=== PATIENT | female | born 1995 | race Caucasian/White ===

== ENCOUNTER → 2019-07-06 12:09 | Outpatient (CLI) | payer OTHER, MEDICAID, SELFPAY ==
--- NOTE | 2019-07-06 12:11 | DI.US.S_ITS ---
PROCEDURE: US OB >= 14 WEEKS FETUS INDICATIONS: Anatomy Scan OUTSIDE/PRIOR DATING DATA: Last menstrual period (LMP): 01/24/19. LMP-based estimated date of delivery (FLORINDA): 10/31/19. First dating scan (date and location): 04/08/19. Estimated date of delivery (FLORINDA) from first dating scan: 11/26/19. TECHNIQUE: Real-time scanning was performed of the fetus, with image documentation and biometric measurements. Endovaginal scanning: Not needed for this study COMPARISON: None. FINDINGS: General: A single living intrauterine gestation is present. Presentation: Breech. Placenta: Placental position is posterior, without previa. Amniotic fluid index: 12.2 cm, normal range is 5-24 cm. heart rate: 132 beats per minute. Maternal cervical canal: 3.4 cm long. Normal lower limit is 2.5 cm. biometrics: Biparietal diameter: 4.4 cm, 19 weeks 2 days Head circumference: 16.7 cm, 19 weeks 2 days Abdominal circumference: 14.3 cm, 19 weeks 5 days Femur length: 3.1 cm, 19 weeks 5 days Estimated gestational age from initial scan: 19 weeks 4 days Composite gestational age from present scan: 19 weeks 4 days Estimated weight and percentile: 303 g, 48th percentile Measurement variability for biometric dating: +/- 7 days from 14 weeks to 15 weeks 6 days gestation, +/- 10 days from 16 weeks to 21 weeks 6 days gestation, +/- 2 weeks from 22 weeks to 27 weeks 6 days gestation, +/- 3 weeks for 28 weeks gestation or later. weight reference: 4500 g or EFW >90/95% is considered macrosomia or large for gestational age. EFW <10% is small for gestational age. EFW 5% or less is considered intra-uterine growth restriction. Anatomic survey: Neuro: Ventricles are non-dilated at less than 10 mm. Cisterna magna is normal at 3-11 mm. Cerebellum is normal in size and morphology. Nuchal skin fold: Normal at less than 6 mm between 14-21 weeks gestational age. Face: Nose and lips, facial profile are normal. Spine: No evidence for spina bifida. Heart: 4-chambered heart is present, with normal ventricular outflow tracts. Diaphragm: Diaphragm is intact. Stomach: Left-sided stomach is present. Kidneys: No hydronephrosis. Normal is less than 5 mm in 2nd trimester, less than 7 mm in 3rd trimester. Cord: 3-vessel cord has orthotopic insertion. Bladder: Normal in size. Extremities: All 4 extremities identified. IMPRESSION: Appropriate interval growth, no anomaly seen. Dictated by: Raulito Najera M.D. on 07/06/2019 at 16:11 Approved by: Raulito Najera M.D. on 07/06/2019 at 16:13
== END ==
PROVIDERS: PCP Obstetrics & Gynecology; Visit Provider Obstetrics & Gynecology
DX: Z34.92 Encounter for supervision of normal pregnancy, unspecified, second trimester (principal); Z3A.19 19 weeks gestation of pregnancy
CPT/HCPCS: 76811

== ENCOUNTER → 2019-08-23 10:14 | Outpatient (CLI) | payer OTHER, MEDICAID, SELFPAY ==
[2019-08-23 12:36] LABS: Hematocrit 38.8 % (36-46); Hemoglobin 13.1 g/dL (12.0-16.0)
[2019-08-23 13:13] LABS: GTT (PREG) 1 Hour PP 50gm Dose 101 mg/dL (76-139)
== END ==
PROVIDERS: PCP Obstetrics & Gynecology; Visit Provider Obstetrics & Gynecology
DX: Z34.02 Encounter for supervision of normal first pregnancy, second trimester (principal)
CPT/HCPCS: 36415; 82950; 85014; 85018; 86850

== ENCOUNTER → 2019-10-25 11:10 | Outpatient (CLI) | payer OTHER, MEDICAID, SELFPAY ==
[2019-10-26 08:23] LABS: Strep Grp B PCR NEG for Grp B Strep
== END ==
PROVIDERS: PCP Obstetrics & Gynecology; Visit Provider Obstetrics & Gynecology
DX: Z34.03 Encounter for supervision of normal first pregnancy, third trimester (principal); Z3A.35 35 weeks gestation of pregnancy
CPT/HCPCS: 87653

== ENCOUNTER 2019-10-28 13:02 | Outpatient (CLI) | payer OTHER, MEDICAID, SELFPAY ==
--- NOTE | 2019-10-28 14:02 | P.TNLD_ITS ---
Visit Information Visit Information Date of evaluation: 10/28/19 Primary OB Provider: Nilam Curry Reason for Evaluation: Yes non-stress test Comments/Additional reasons for admission: Patient presented from home reporting decreased movement, no other obstetrical complaints. [facility] Medical History Acne (Chronic) Chicken pox (Resolved ~1995) Chlamydia infection (Acute ~2018) Hormone disorder (Acute) Irregular menstrual cycle (Chronic) Ovarian cyst (Acute) Pyelonephritis (Acute) Surgical History Anesthesia (Resolved) History of facial surgery (Acute) Hx of tonsillectomy (Acute) [place] teeth extracted (Acute) Family History Grandmother Cancer Grandfather Heart disease Sister Hydrocephalus Father Hypertension Alcoholic Social History marital status: unmarried,living together number of children: 0 household members: significant other pets and animals: Yes (Dog) education level: college (1 year of College) occupational status: employed ([employer] ) current occupational exposures/hazards: No special killian needs: No leisure activities: exercise Smoking Status: Never smoker Smokeless tobacco user: other (H/O Vaping) second hand exposure: No alcohol intake: former substance use type: does not use Review of Systems Constitutional Constitutional: Reports system reviewed and no additional complaints, except as documented Gastrointestinal Gastrointestinal: Reports system reviewed and no additional complaints, except as documented Genitourinary Genitourinary: Reports system reviewed and no additional complaints, except as documented Evaluation Evaluation Baseline heart rate: 135 Variability: Moderate (11-25) monitor accelerations: Present monitor decelerations: Absent Category of Tracing: I Diagnosis, Plan/Disposition Plan/Disposition Plan: Home with routine follow up. OB Disposition: home
== END 2019-10-28 14:10 | disposition home or self-care (01) ==
LOC: LABOR 14:13 → OB 10-31 10:56
PROVIDERS: PCP Obstetrics & Gynecology; Referring Provider Obstetrics & Gynecology; Visit Provider Obstetrics & Gynecology
DX: O36.8130 Decreased fetal movements, third trimester, not applicable or unspecified (principal); Z3A.35 35 weeks gestation of pregnancy
CPT/HCPCS: 59025; G0378; G0379

== ENCOUNTER → 2019-11-23 08:40 | Outpatient (CLI) | payer OTHER, MEDICAID, SELFPAY ==
[2019-11-23 09:02] LABS: Add Manual Diff / Slide Review NO; Basophils Absolute Auto 100 /uL (0-100); Basophils Percent Auto 0.6 % (0-2); Eosinophils Absolute Auto 100 /uL (0-450); Eosinophils Percent Auto 1.1 % (2-4); Hematocrit 39.6 % (36-46); Hemoglobin 13.5 g/dL (12.0-16.0); Lymphocytes Absolute Auto 2100 /uL (1100-4500); Lymphocytes Percent Auto 18.6 % (25-40); Mean Corpuscular HGB Conc 34.1 % (30-36); Mean Corpuscular Hemoglobin 29.9 PG (26-34); Mean Corpuscular Volume 87.8 fL (80-100); Monocytes Absolute Auto 700 /uL (0-900); Monocytes Percent Auto 6.1 % (3-14); Neutrophils Absolute Auto 8400 /uL (1500-7000); Neutrophils Percent Auto 73.6 % (50-75); Platelet Count 254 X10^3/uL (150-400); Red Blood Cell Count 4.51 X10^6/uL (4.0-5.2); Red Cell Distribution Width 14.2 % (11.6-14.8); White Blood Cell Count 11.4 X10^3/uL (4.5-11.0)
[2019-11-23 09:05] LABS: Creatinine Urine Random 50.1 mg/dL; Protein (Total) Urine Random 15 mg/dL (0-12); Protein Creatinine Ratio Urine 0.29 GRAM/24H
[2019-11-23 09:13] LABS: Aspartate Aminotransferase 24 IU/L (14-36); BUN Creatinine Ratio 11.8 (6-22); Blood Urea Nitrogen 6 mg/dL (7-17); Estimated Glomerular Filt Rate > 60.0 mL/min (>60); Uric Acid 4.8 mg/dL (2.5-6.2)
== END ==
PROVIDERS: Referring Provider Obstetrics & Gynecology; Visit Provider Obstetrics & Gynecology
DX: Z34.90 Encounter for supervision of normal pregnancy, unspecified, unspecified trimester (principal)
CPT/HCPCS: 36415; 82570; 84156; 84450; 84550; 85025

== ENCOUNTER → 2019-11-27 08:52 | Outpatient (CLI) | payer OTHER, MEDICAID, SELFPAY ==
[2019-11-28 02:04] LABS: COVID19 Sendout Not Detected (Not Detect)
== END ==
PROVIDERS: Visit Provider Physician Assistant
DX: Z01.812 Encounter for preprocedural laboratory examination (principal)
CPT/HCPCS: 87635

== ENCOUNTER 2019-11-27 09:33 | Outpatient (CLI) | payer OTHER, MEDICAID, SELFPAY ==
--- NOTE | 2019-11-27 10:25 | P.TNLD_ITS ---
Visit Information Visit Information Date of evaluation: 11/27/19 Primary OB Provider: Nilam Curry Reason for Evaluation: Yes non-stress test Comments/Additional reasons for admission: This patient is a 24yo P0 @40+1, scheduled for induction of labor tomorrow for postdates in the setting of elective pre-induction covid testing. The patient reports feeling well with no complaints obstetrical or otherwise, and presents for planned NST/SHEREEN after being tested for covid this AM. Vital Signs Vital Signs: 125/86, HR 93, T 36.6C PFSH Medical History Acne (Chronic) Chicken pox (Resolved ~1995) Chlamydia infection (Acute ~2018) Hormone disorder (Acute) Irregular menstrual cycle (Chronic) Ovarian cyst (Acute) Pyelonephritis (Acute) Surgical History Anesthesia (Resolved) History of facial surgery (Acute) Hx of tonsillectomy (Acute) [place] teeth extracted (Acute) Family History Grandmother Cancer Grandfather Heart disease Sister Hydrocephalus Father Hypertension Alcoholic Social History marital status: unmarried,living together number of children: 0 household members: significant other pets and animals: Yes (Dog) education level: college occupational status: employed current occupational exposures/hazards: No special killian needs: No leisure activities: exercise Smoking Status: Never smoker Smokeless tobacco user: other second hand exposure: No alcohol intake: former substance use type: does not use Review of Systems Constitutional Constitutional: Reports system reviewed and no additional complaints, except as documented Cardiovascular Cardiovascular: Reports system reviewed; no additional complaints, except as documented Respiratory Respiratory: Reports system reviewed and no additional complaints, except as documented Gastrointestinal Gastrointestinal: Reports system reviewed and no additional complaints, except as documented Genitourinary Genitourinary: Reports system reviewed and no additional complaints, except as documented Exam Const General: cooperative, healthy appearing and comfortable GI Palpation: soft and No tender Evaluation Evaluation Baseline heart rate: 140 Variability: Average (6-10) monitor accelerations: Present monitor decelerations: Absent Category of Tracing: I Comments: irreg asymptomatic ctx. Modified BPP performed, SHEREEN 11.2 cm, cephalic presentation, right lateral placenta Diagnosis, Plan/Disposition Plan/Disposition Plan: Stable for discharge with routine precautions. Scheduled for admission to L&D tomorrow evening for cervical ripening. OB Disposition: home
== END 2019-11-27 10:30 | disposition home or self-care (01) ==
LOC: OB 11-28 14:23
PROVIDERS: Referring Provider Obstetrics & Gynecology; Visit Provider Obstetrics & Gynecology
DX: O48.0 Post-term pregnancy (principal); Z3A.40 40 weeks gestation of pregnancy; Z11.59 Encounter for screening for other viral diseases
CPT/HCPCS: 59025; 76815; 87635; G0378; G0379

== ENCOUNTER 2019-11-28 19:03 | Inpatient (IN) | payer OTHER, MEDICAID, SELFPAY ==
[2019-11-28 19:13] VITALS: BP 136/92
[2019-11-28] MEDS: DINOPROSTONE VAG (CERVIDIL) 10 MG VAG (20:05)
[2019-11-28 20:22] LABS: Add Manual Diff / Slide Review NO; Basophils Absolute Auto 0 /uL (0-100); Basophils Percent Auto 0.2 % (0-2); Eosinophils Absolute Auto 100 /uL (0-450); Eosinophils Percent Auto 0.8 % (2-4); Hematocrit 40.9 % (36-46); Hemoglobin 13.6 g/dL (12.0-16.0); Lymphocytes Absolute Auto 2700 /uL (1100-4500); Lymphocytes Percent Auto 20.3 % (25-40); Mean Corpuscular HGB Conc 33.4 % (30-36); Mean Corpuscular Hemoglobin 29.5 PG (26-34); Mean Corpuscular Volume 88.3 fL (80-100); Monocytes Absolute Auto 800 /uL (0-900); Monocytes Percent Auto 6.1 % (3-14); Neutrophils Absolute Auto 9500 /uL (1500-7000); Neutrophils Percent Auto 72.6 % (50-75); Platelet Count 279 X10^3/uL (150-400); Red Blood Cell Count 4.63 X10^6/uL (4.0-5.2); Red Cell Distribution Width 14.7 % (11.6-14.8); White Blood Cell Count 13.1 X10^3/uL (4.5-11.0)
[2019-11-28 20:23] LABS: COVID19 -Nasal RAPID Negative (Negative)
[2019-11-29] MEDS: CALCIUM CARBONATE 500 MG TAB PO ×2 (01:37→20:02)
[2019-11-29] MEDS: ZOLPIDEM 5 MG TABLET PO (01:37)
[2019-11-29] MEDS: OXYTOCIN PREMIX 30 UNIT/500 ML PLAST..BAG IV (08:44)
[2019-11-29] MEDS: LACTATED RINGERS 1,000 ML 100 ML IV ×2 (08:44→21:05)
--- NOTE | 2019-11-29 09:36 | PM.HP.1 ---
History of Present Illness History of Present Illness Chief complaint: Patient History Family & Social History Social History: household members significant other Tobacco & Substance use: Tobacco type smokeless tobacco Smoking Status Former smoker alcohol intake former Meds Home Medications and Allergies Home Medications Medication Instructions Recorded Confirmed Type nitrofurantoin 100 mg PO DAILY #180 cap 06/29/19 11/28/19 Rx monohydrate/macrocrystals 100 mg capsule multivit no.42-iron 38 1 cap PO DAILY #90 cap 07/26/19 11/28/19 Rx mg-methyltetrahydfolate 1 mg-dha 225 mg capsule Allergies Allergy/AdvReac Type Severity Reaction Status Date / Time adhesive tape Allergy Mild LOCAL Verified 11/29/19 08:38 RASH/HIVES Objective Labs Result Diagrams: 11/28/19 20:00 Labs: Laboratory Results - last 24 hr 11/28/19 11/28/19 11/28/19 19:20 20:00 20:00 WBC 13.1 H RBC 4.63 Hgb 13.6 Hct 40.9 MCV 88.3 MCH 29.5 MCHC 33.4 RDW 14.7 Plt Count 279 Neut % (Auto) 72.6 Lymph % (Auto) 20.3 L [place] % (Auto) 6.1 Eos % (Auto) 0.8 L Baso % (Auto) 0.2 Neut # (Auto) 9500 H Lymph # (Auto) 2700 [place] # (Auto) 800 Eos # (Auto) 100 Baso # (Auto) 0 COVID-19 PCR Negative Blood Type O Positive Antibody Screen Negative
--- NOTE | 2019-11-29 09:36 | PM.OBPNLAB ---
Date/Time Date Patient Seen: 11/29/19 Time Patient Seen: 09:36 Pain Control Pain control: tolerating well Pelvic Exam Dilation (cm): 3 Effacement (%): 80 station: -2 Amniotic membrane status: Intact Comments: 122/68, HR 89 Contractions Pitocin rate (mU/min): 4 Contraction frequency (min): 3 Status status: Category l Heart Rate Baseline: 135 Monitor Accelerations: Present Monitor Decelerations: Absent Monitor Variability: Moderate Assessment and Plan Assessment: active labor Plan: continuous present management
--- NOTE | 2019-11-29 10:48 | P.HPOB_ITS ---
OB HPI Date/Time Date of admission: 11/28/19 Date Patient Seen: 11/29/19 Time Patient Seen: 09:30 History of Present Condition Chief complaint: : 1 Para: 0 Estimated Date of Delivery: 11/26/19 Estimated Gestational Age (weeks): 40 Narrative: Maty Roa is a 24 year old @40+3 admitted overnight for cervical ripening for a postdates induction today. She reports feeling well with no decreased movement, LOF, or VB, though she has had irregular contractions. She denies any non-obstetric complaints. Her has been complicated by positive chlamydia test at her new OB visit with a negative test of cure. She has been on UTI prophylaxis due to a history of frequent UTIs and pyelonephritis, macrobid transitioning to keflex at 36 weeks. Her has otherwise been uncomplicated, and she presented for induction in order to facilitate covid testing. Of note, her partner tested positive for covid though he is asymptomatic, and she is asymptomatic and has tested negative twice, the second time on admission after being self isolated away from him. Indications Indication for induction OB: post dates and other (facilitating covid testing) History of Present care: good care, initiated at week # (10), number of visits (16) and pounds weight gain (50) Dating criteria: LMP confirmed by 1st trimester US Ultrasounds: normal 1st trimester US and normal mid trimester US Obstetrical complications: none Preadmission Labs Blood type: O (+) positive -: Antibody screen: negative, GBS status: negative, HBsAG: negative, HIV: negative and RPR/VDLR: negative -: Chlamydia screen: detected and Gonorrhea screen: not detected -: Rubella: immune and Varicella: immune PAP: Normal Integrated screen: complete and negative through [facility] 1 hr GTT: 101 Evaluation Evaluation Baseline heart rate: 135 Variability: Moderate (11-25) monitor accelerations: Present monitor decelerations: Absent Contraction Frequency (minutes): 3 Category of Tracing: I Cervical dilation (cm): 3 Cervical effacement (%): 80 station: -2 Laboratory results: Laboratory Tests 11/28/19 11/28/19 11/28/19 19:20 20:00 20:00 WBC 13.1 H RBC 4.63 Hgb 13.6 Hct 40.9 MCV 88.3 MCH 29.5 MCHC 33.4 RDW 14.7 Plt Count 279 Neut % (Auto) 72.6 Lymph % (Auto) 20.3 L [place] % (Auto) 6.1 Eos % (Auto) 0.8 L Baso % (Auto) 0.2 Neut # (Auto) 9500 H Lymph # (Auto) 2700 [place] # (Auto) 800 Eos # (Auto) 100 Baso # (Auto) 0 COVID-19 PCR Negative Blood Type O Positive Antibody Screen Negative PFSH Medical History Acne (Chronic) Chicken pox (Resolved ~1995) Chlamydia infection (Acute ~2018) Hormone disorder (Acute) Irregular menstrual cycle (Chronic) Ovarian cyst (Acute) Pyelonephritis (Acute) Surgical History Anesthesia (Resolved) History of facial surgery (Acute) Hx of tonsillectomy (Acute) [place] teeth extracted (Acute) Family History Grandmother Cancer Grandfather Heart disease Sister Hydrocephalus Father Hypertension Alcoholic Social History marital status: unmarried,living together number of children: 0 household members: significant other pets and animals: Yes (Dog) education level: college occupational status: employed current occupational exposures/hazards: No special killian needs: No leisure activities: exercise Smoking Status: Former smoker Smokeless tobacco user: other second hand exposure: No alcohol intake: former substance use type: does not use Meds Home Medications and Allergies Home Medications Medication Instructions Recorded Confirmed Type nitrofurantoin 100 mg PO DAILY #180 cap 06/29/19 11/28/19 Rx monohydrate/macrocrystals 100 mg capsule multivit no.42-iron 38 1 cap PO DAILY #90 cap 07/26/19 11/28/19 Rx mg-methyltetrahydfolate 1 mg-dha 225 mg capsule Allergies Allergy/AdvReac Type Severity Reaction Status Date / Time adhesive tape Allergy Mild LOCAL Verified 11/29/19 08:38 RASH/HIVES Review of Systems Constitutional Constitutional: Reports system reviewed and no additional complaints, except as documented Cardiovascular Cardiovascular: Reports system reviewed; no additional complaints, except as documented Respiratory Respiratory: Reports system reviewed and no additional complaints, except as documented Gastrointestinal Gastrointestinal: Reports system reviewed and no additional complaints, except as documented Genitourinary Genitourinary: Reports system reviewed and no additional complaints, except as documented Neurologic Neurologic: Reports system reviewed and no additional complaints, except as documented Exam Vital Signs (past 8 hours): 122/68, HR 69, T 36.6C Const General: cooperative, healthy appearing and comfortable GI Palpation: soft and No tender Speculum Exam - Vagina: normal appearance of the vagina Skin General: no rashes or lesions noted Objective Labs Result Diagrams: 11/28/19 20:00 Labs: Laboratory Results - last 24 hr 11/28/19 11/28/19 11/28/19 19:20 20:00 20:00 WBC 13.1 H RBC 4.63 Hgb 13.6 Hct 40.9 MCV 88.3 MCH 29.5 MCHC 33.4 RDW 14.7 Plt Count 279 Neut % (Auto) 72.6 Lymph % (Auto) 20.3 L [place] % (Auto) 6.1 Eos % (Auto) 0.8 L Baso % (Auto) 0.2 Neut # (Auto) 9500 H Lymph # (Auto) 2700 [place] # (Auto) 800 Eos # (Auto) 100 Baso # (Auto) 0 COVID-19 PCR Negative Blood Type O Positive Antibody Screen Negative Assessment and Plan Assessment and Plan Assessment and Plan narrative: This patient is admitted for elective induction of labor after 40 weeks, and has had a cervidil overnight transitioned to pitocin this AM. The patient is doing well, progressing to 3/80/-2, soft, and anterior after cervical ripening. - Continue pitocin per protocol - Anticipate AROM at 4-5cm dilated - Epidural at will - monitoring and toco per protocol.
--- NOTE | 2019-11-29 12:14 | PM.OBPNLAB ---
Date/Time Date Patient Seen: 11/29/19 Time Patient Seen: 12:14 Pain Control Pain control: tolerating well Pelvic Exam Dilation (cm): 4 Effacement (%): 80 station: -2 Amniotic membrane status: Ruptured (AROM, scant clear fluid) Contractions Contraction frequency (min): 3 Contraction pattern: Regular Contraction intensity: Moderate Status status: Category l Heart Rate Baseline: 125 Monitor Accelerations: Present Monitor Decelerations: Absent Monitor Variability: Moderate Assessment and Plan Assessment: induction ongoing Plan: continuous present management Comments: AROM for blood-tinged to clear fluid. Continue pitocin per protocol.
[2019-11-29] MEDS: ONDANSETRON 4 MG/2 ML INJ IV ×2 (15:50→19:58)
--- NOTE | 2019-11-29 17:11 | PM.OBPNLAB ---
Date/Time Date Patient Seen: 11/29/19 Time Patient Seen: 17:11 Pain Control Pain control: epidural Pelvic Exam Dilation (cm): 6 Effacement (%): 100 station: -3 Amniotic membrane status: Ruptured (AROM, scant clear fluid) Comments: ROT presentation Contractions Pitocin rate (mU/min): 9 Contraction frequency (min): 3 Contraction pattern: Regular Contraction intensity: Moderate Status status: Category ll Heart Rate Baseline: 120 Monitor Accelerations: Present Monitor Decelerations: Variable Monitor Variability: Moderate Assessment and Plan Assessment: induction ongoing Plan: continuous present management Comments: variable/late decelerations in the setting of patient repositioning and otherwise reassuring features. Mild to moderate bloody show.
[2019-11-29] MEDS: FENT 2MCG/ML BUPIV 0.125% EPI 200 MCG/100 ML PLAST..BAG 10 MCG EPIDURAL (19:42)
--- NOTE | 2019-11-29 20:18 | PM.OBPNLAB ---
Date/Time Date Patient Seen: 11/29/19 Time Patient Seen: 20:19 Pain Control Pain control: epidural (poor pain relief) Pelvic Exam Dilation (cm): 10 Effacement (%): 100 station: 0 Amniotic membrane status: Ruptured (AROM, scant clear fluid) Contractions Pitocin rate (mU/min): 7 Contraction frequency (min): 2 Contraction pattern: Regular Contraction intensity: Moderate Status status: Category ll Heart Rate Baseline: 135 Monitor Accelerations: Present Monitor Decelerations: Variable Assessment and Plan Assessment: induction ongoing Plan: continuous present management Comments: Patient fully dilated, OT presentation. Anesthesia en route to bolus epidural, then plan to start second stage with attempted manual rotation of vertex.
--- NOTE | 2019-11-29 21:19 | PM.PREOP ---
Pre-operative Note COVID-19 COVID-19 status: Negative Result date/Date tested (Pos, Neg/Pending): 11/28/19 Interval Note History & Physical reviewed/Exam performed by Physician: Yes Changes to H&P: No H&P completed within 30 days and has changed as indicated here:: Patient progressed to fully dilated, vertex alternating between ROT/ROP presentation and -1 to 0 station. Cat 2 EFM with late and prolonged decelerations, with 3 min prolonged to 90s with first few pushes. Pitocin turned off, bolus initiated, patient turned to right side, EFM improved. Patient consented for section for intolerance of labor in the second stage, remote from delivery. Discussed risks of continuing to push, primarily lack of oxygenation to fetus. Discussed risks of section including risk of infection, hemorrhage, and damage to bowel and bladder. Patient vocalized understanding and all questions answered.
[2019-11-29] MEDS: CEFAZOLIN 2 GM/100 ML FROZ.PIGGY IV (22:10)
[2019-11-29] MEDS: AZITHROMYCIN 500 MG in DEXTROSE 5% IN WATER 250 ML IV (22:20)
--- NOTE | 2019-11-29 22:30 | SUR.OPER ---
Supine on Padded OR bed, head on pillow, safety belt at thigh, arms secured on padded arm boards at <90 degrees abduction. Bump under right buttock. Legs uncrossed with pillow under knees, gel pad to heels, tape over blanket to lower legs.
--- NOTE | 2019-11-29 22:56 | SUR.OPER ---
viable baby girl born at 1031, placenta delivered at 1035, see OB rn charting for , placenta and cord blood sent with OB RN
[2019-11-29 23:38] VITALS: BP 133/78; PULSE 94; RESP 21; TEMP 36.7; O2SAT 99
[2019-11-29 23:43] VITALS: BP 127/74; PULSE 82; RESP 19; O2SAT 98
[2019-11-29 23:48] VITALS: BP 112/75; PULSE 91; RESP 22; O2SAT 98
--- NOTE | 2019-11-29 23:52 | P.OP_ITS ---
Operative Date/Time/Diagnoses Date of procedure: 11/29/19 Time of procedure: 23:52 Pre-op diagnosis: intolerance of 2nd stage of labor Post-op diagnosis: same Procedure & Clinicians Procedure: primary section Same procedure as scheduled: Yes Indications: intolerance of labor Surgeon: Nilam Curry Developer Designer: Renea Mercado Anesthesia Type: Epidural Operative Notes Findings: Normal uterus, tubes, and ovaries. 7#5oz female infant in cephalic, ROP presentation, nuchal cord x1. Closure Type: primary Specimen(s): other (cord gas) Estimated Blood Loss (mL): 750 Blood products transfused: none Procedure in detail: EBL: 750 Fluids:1900 UOP: approx 200ccs, red Findings:female in cephalic presentation, Apgars 4, 6, 9, weight 7#5, normal uterus, tubes, ovaries. Procedures: The patient was taken to the operating room where epidural anesthesia was bolused and found to be adequate. She was prepped and draped in the normal sterile fashion in the dorsal supine position with a leftward tilt. A Pfannenstiel skin incision was made with a scalpel and carried through to the underlying layer of fascia. The fascia was incised in the midline and the incision extended laterally with Hernandez scissors. The inferior aspect of this incision was grasped with Radha clamps, elevated. and the underlying rectus muscles dissected off bluntly. Attention was then turned to the superior aspect of this incision which, in a similar fashion, was grasped, tented up with the Radha clamps, and the rectus muscles dissected off bluntly. The rectus muscles were then in the midline, and the peritoneum identified, tented up, and entered sharply with Metzenbaum scissors. The peritoneal incision was extended superiorly and inferiorly with good visualization of the bladder. The bladder blade was inserted and the vesicouterine peritoneum identified, grasped with pickups, and entered sharply with the Metzenbaum scissors. This incision was extended laterally, and the bladder flap created digitally. The bladder blade was then reinserted and the lower uterine segment incised in transverse fashion with the scalpel. The uterine incision was bluntly extended laterally. The bladder blade was removed, and the 's head delivered atraumatically from the OP presentation, with some initial difficulty flexing the vertex. A loose nuchal cord was reduced, and the cord immediately clamped and cut. The infant was handed off to awaiting pediatricians. The placenta was then removed spontaneously, and the uterus was exteriorized and cleared of all clots and debris. The uterine incision was noted to have extend ed approx. 2cm inferiorly from the right apex, and approx. 3cm superiorly from the right apex. This was repaired with 1-0 chromic in a running, locked fashion, and a 2nd layer of the same suture was used to obtain excellent hemostasis. The uterus was returned to the abdomen, and the gutters were cleared of all clots and debris. The fascia was reapproximated with 0 Vicryl in a running fashion. The subcutaneous layer was placed with 3 0 Vicryl in a running fashion and the skin was closed with 4-0 biosyn in a running fashion. The patient tolerated the procedure well sponge lap and needle counts were correct x2. 2 g of Ancef and 500mg Azithromycin were given at commencement of the case, and a betadine vaginal prep was performed. The patient was taken to the recovery room in stable condition. Complications: none Post-operative Condition: stable Disposition: PACU Plan for aftercare: Routine care
[2019-11-29 23:53] VITALS: BP 108/77; PULSE 92; RESP 18; O2SAT 97
--- NOTE | 2019-11-30 00:22 | SUR.PHASEI ---
transferred to in stable condition. Scant Lochi noted with fundus noted 1 above umbilicus. Toradol adminsitered prior to transfer. Pt in stable condition. Report to OTILIA Rao
[2019-11-30] MEDS: LACTATED RINGERS 1,000 ML 100 ML IV (00:44)
[2019-11-30] MEDS: OXYCODONE IR 5 MG TABLET PO ×5 (01:41→20:18)
[2019-11-30] MEDS: KETOROLAC 30 MG/ML VIAL IV ×4 (06:09→18:30)
[2019-11-30 07:05] LABS: Add Manual Diff / Slide Review NO; Basophils Absolute Auto 0 /uL (0-100); Basophils Percent Auto 0.1 % (0-2); Eosinophils Absolute Auto 0 /uL (0-450); Eosinophils Percent Auto 0.2 % (2-4); Hematocrit 32.1 % (36-46); Hemoglobin 10.9 g/dL (12.0-16.0); Lymphocytes Absolute Auto 1800 /uL (1100-4500); Mean Corpuscular HGB Conc 33.9 % (30-36); Mean Corpuscular Volume 88.3 fL (80-100); Monocytes Absolute Auto 1500 /uL (0-900); Monocytes Percent Auto 8.7 % (3-14); Neutrophils Absolute Auto 13400 /uL (1500-7000); Platelet Count 219 X10^3/uL (150-400); Red Blood Cell Count 3.63 X10^6/uL (4.0-5.2); Red Cell Distribution Width 14.6 % (11.6-14.8); White Blood Cell Count 16.8 X10^3/uL (4.5-11.0)
[2019-11-30] MEDS: DOCUSATE 250 MG CAPSULE PO (09:50)
[2019-11-30] MEDS: ACETAMINOPHEN 325 MG TABLET 650 MG PO ×3 (09:50→23:09)
--- NOTE | 2019-11-30 12:29 | PM.OBPN.1 ---
Subjective - OB Subjective Patient comments: pain well controlled, incisional pain and tolerating diet baby status: doing well [place] feeding status: exclusively breast feeding Narrative: This patient is a 24yo P1 POD#1 s/p pCS for intolerance of labor. She had referred right shoulder pain this AM that is now resolved, and denies fevers, chills, nausea, vomiting, significant other abdominal pain, GABRIEL, or visual changes. She has not yet passed flatus, has not attempted ambulation, and is tolerating PO. Baby is doing well, attempting . Date Patient Seen: 11/30/19 Time Patient Seen: 08:00 Exam Vital Signs (past 8 hours): Oxygen Delivery Method Room Air Const General: cooperative, healthy appearing and comfortable Resp Effort & Inspection: normal respiratory effort Auscultation: clear to auscultation bilaterally Cardio Rate: regular rate Rhythm: regular rhythm GI Palpation: soft and No tender Other: incision c/d/i. Fundus firm, well below u. Mildly distended and tympanic, soft and non tender Skin General: no rashes or lesions noted Objective Labs Result Diagrams: 11/30/19 06:30 Labs: Laboratory Results - last 24 hr 11/30/19 06:30 WBC 16.8 H RBC 3.63 L Hgb 10.9 L Hct 32.1 L MCV 88.3 MCH 30.0 MCHC 33.9 RDW 14.6 Plt Count 219 Neut % (Auto) 80.0 H Lymph % (Auto) 11.0 L Gates % (Auto) 8.7 Eos % (Auto) 0.2 L Baso % (Auto) 0.1 Neut # (Auto) 20230 H Lymph # (Auto) 1800 Gates # (Auto) 1500 H Eos # (Auto) 0 Baso # (Auto) 0 Assessment & Plan Assessment and Plan (1) delivery delivered: Problem details: This patient is recovering appropriately from her section, meeting postoperative goals with stable vitals and a hemoglobin decrease c/w her blood loss. She will have her salmeron removed this AM, and was encouraged to ambulate and chew gum to facilitate passage of flatus. We also discussed that she should use tylenol and NSAIDs scheduled with breakthrough opioids for pain control. Status: Acute Current Visit: Yes Plan day: 1 plan OB: routine postop care Time Spent With Patient Time: Total time spent is greater than 50% in coordination of care (as documented) at patient's floor/unit and/or counseling patient: Time with patient: 15-24 minutes
[2019-11-30] MEDS: MAG HYDROX/ALUM/SIMETH 30 ML UDC PO (20:54)
[2019-11-30] MEDS: LANOLIN OINT 7 GM 1 APPLIC TOP (23:10)
[2019-12-01] MEDS: OXYCODONE IR 5 MG TABLET PO ×2 (00:36→05:16)
[2019-12-01] MEDS: IBUPROFEN 600 MG TABLET PO ×2 (01:08→08:21)
[2019-12-01] MEDS: ACETAMINOPHEN 325 MG TABLET 650 MG PO (05:16)
[2019-12-01] MEDS: DOCUSATE 250 MG CAPSULE PO (08:21)
--- NOTE | 2019-12-01 09:28 | P.PNOB_ITS ---
Subjective - OB Subjective Patient comments: no complaints, pain well controlled, incisional pain, tolerating diet and flatus present baby status: doing well [place] feeding status: exclusively breast feeding Narrative: This patient is POD#2 s/p pCS for intolerance of labor. She is passing flatus and reports improved abdominal pain, though she has burning incisional pain with large gaps between pain medication. She is voiding well, has mild to moderate lochia, denies fevers, chills, nausea, vomiting, GABRIEL, or visual changes. She is tolerating PO and ambulating without issue. Date Patient Seen: 12/01/19 Time Patient Seen: 09:28 Exam Vital Signs (past 8 hours): 119/69, HR 85, T 98.9F Oxygen Delivery Method Room Air Resp Effort & Inspection: normal respiratory effort Auscultation: clear to auscultation bilaterally Cardio Rate: regular rate Rhythm: regular rhythm GI Other: fundus firm, below u. Incision c/d/i. Skin General: no rashes or lesions noted Extrem General: normal to inspection Objective Labs Result Diagrams: 11/30/19 06:30 Assessment & Plan Assessment and Plan (1) delivery delivered: Problem details: This patient is recovering appropriately from her section, meeting postoperative goals and stable for discharge. Patient reported mild transient dizziness on first standing that has now resolved, but after discussion desires repeat H/H. Patient and baby are doing well. We discussed precautions for discharge including increasing pain, fevers, chills, nausea, vomiting, PIH symptoms, increasing bleeding, or any other concerning symptoms. All questions were answered and patient will return for incision check in 1 week. Status: Acute Current Visit: Yes Time Spent With Patient Time: Total time spent is greater than 50% in coordination of care (as documented) at patient's floor/unit and/or counseling patient: Time with patient: 15-24 minutes
--- NOTE | 2019-12-01 09:32 | P.DS_ITS ---
Discharge Providers Provider Date of admission: 11/28/19 19:03 Discharge Date: 12/01/19 Consults: 11/30/19 00:43 Consult to Class C Driver Routine Comment: Discharge provider: Nilam Curry MD Summary Hospital Course Date Patient Seen: 12/01/19 Time Patient Seen: 09:33 Procedures: primary section Hospital Course: This patient was admitted for induction of labor for postdates, and underwent induction with cervidil and pitocin. She progressed to fully dilated, but developed a cat 2 EFM and was remote from delivery, and was taken for primary section. Her section was complicated by hysterotomy extension, which was repaired without hemorrhage. Her recovery was uneventful, and she was discharged on POD#2 with routine precautions and follow up. Peripartum Data Delivery Method: Section complications: none [place] 1: Gender: Female Disposition of : home Discharge Diagnosis (1) delivery delivered: Status: Acute Problem Details: This patient is recovering appropriately from her section, meeting postoperative goals and stable for discharge. Patient reported mild transient dizziness on first standing that has now resolved, but after discussion desires repeat H/H. Patient and baby are doing well. We discussed precautions for discharge including increasing pain, fevers, chills, nausea, vomiting, PIH symptoms, increasing bleeding, or any other concerning symptoms. All questions were answered and patient will return for incision check in 1 week. Status at Discharge Cognitive/behavioral status at discharge: oriented Functional status at discharge: independent ambulation Overall status at discharge: patient is progressing back to baseline Time Spent with Patient Time attestation: Total time spent providing and/or coordinating discharge services: Time spent: Greater than 30 minutes Objective Labs Result Diagrams: 11/30/19 06:30 Exam Vital Signs (past 8 hours): Oxygen Delivery Method Room Air Discharge Plan Discharge Plan Patient Disposition: Home Discharge orders & Medications Prescriptions: New oxycodone 5 mg tablet 5 mg PO Q6H PRN (Reason: pain) Qty: 20 RF: 0 acetaminophen 325 mg tablet 650 mg PO Q6H PRN (Reason: section) Qty: 30 RF: 1 ibuprofen 600 mg tablet 600 mg PO Q6H PRN (Reason: section) Qty: 30 RF: 1 acetaminophen 325 mg tablet 325 mg PO Q4-6H PRN (Reason: section) Qty: 30 RF: 1 Continued multivit no.43-huvc-muyzfu-dha 38-1-225 mg capsule 1 cap PO DAILY Qty: 90 RF: 4 Discontinued nitrofurantoin monohyd/m-cryst [Macrobid] 100 mg capsule 100 mg PO DAILY Qty: 180 RF: 1 Follow up/Referrals: Nilam Curry MD [Physician] - 1 Week Diet/Activity/Treatments Diet: Regular Activity: Nothing in the vagina for 6 weeks. Avoid lifting more than 10 lbs for 6 weeks. If you have increasing bleeding, fevers, chills, nausea, vomiting, chest pain, palpitations, or any other symptoms or concerns, call the office or come to the emergency room. Skin/Wound/Dressing Care Report to your healthcare provider any signs of infection, such as:: chills, fe steven, night sweats, increased pain, unusual drainage and unusual redness Visit Report/Discharge Packet Instructions: DI for
[2019-12-01 09:44] VITALS: BP 119/69; PULSE 85; RESP 17; TEMP 37.2
[2019-12-01 09:49] LABS: Hemoglobin 10.4 g/dL (12.0-16.0)
== END 2019-12-01 11:30 | disposition home or self-care (01) | DRG 540 ==
PROVIDERS: Admitting Provider Obstetrics & Gynecology; Referring Provider Obstetrics & Gynecology; Visit Provider Obstetrics & Gynecology
PROC: 10D00Z1 Extraction of Products of Conception, Low, Open Approach (ICD-10-PCS; CPT 59514; principal; 2019-11-29 21:45)
DX: O48.0 Post-term pregnancy (principal); Z3A.40 40 weeks gestation of pregnancy; Z37.0 Single live birth; O98.82 Other maternal infectious and parasitic diseases complicating childbirth; O63.1 Prolonged second stage (of labor); O76 Abnormality in fetal heart rate and rhythm complicating labor and delivery
CPT/HCPCS: 01967; 01968; 36415; 59025; 59050; 59200; 59514; 76815; 85014; 85018; 85025; 86850; 86900; 86901; 87635; G0379; J0690; J1885; J2250; J2405; J2590; J2704

== ENCOUNTER → 2020-08-20 15:09 | Outpatient (CLI) | payer OTHER, MEDICAID, SELFPAY ==
[2020-08-20 16:34] LABS: Add Manual Diff / Slide Review NO; Basophils Absolute Auto 0 /uL (0-100); Basophils Percent Auto 0.5 % (0-2); Eosinophils Absolute Auto 100 /uL (0-450); Eosinophils Percent Auto 1.5 % (2-4); Hematocrit 43.5 % (36-46); Lymphocytes Absolute Auto 2200 /uL (1100-4500); Lymphocytes Percent Auto 36.2 % (25-40); Mean Corpuscular HGB Conc 32.2 % (30-36); Mean Corpuscular Hemoglobin 28.1 PG (26-34); Mean Corpuscular Volume 87.2 fL (80-100); Monocytes Absolute Auto 400 /uL (0-900); Monocytes Percent Auto 6.4 % (3-14); Neutrophils Absolute Auto 3300 /uL (1500-7000); Neutrophils Percent Auto 55.4 % (50-75); Platelet Count 273 X10^3/uL (150-400); Red Blood Cell Count 4.98 X10^6/uL (4.0-5.2); Red Cell Distribution Width 14.6 % (11.6-14.8)
[2020-08-20 18:00] LABS: Thyroid Stimulating Hormone 3.81 uIU/mL (0.47-4.68)
== END ==
PROVIDERS: Referring Provider Obstetrics & Gynecology; Visit Provider Obstetrics & Gynecology
DX: R00.2 Palpitations (principal)
CPT/HCPCS: 36415; 84439; 84443; 85025

== ENCOUNTER 2020-09-17 17:28 | Emergency (ER) | payer OTHER, MEDICAID, SELFPAY ==
[2020-09-17 17:34] VITALS: BP 129/78; PULSE 72; RESP 16; TEMP 36.6; O2SAT 99
--- NOTE | 2020-09-17 20:12 | ED.HA ---
HPI - Headache General Chief Complaint: Headache Stated Complaint: Migraine Time Seen by Provider: 09/17/20 18:04 Source: patient Mode of arrival: Ambulatory Limitations: no limitations History of Present Illness HPI Narrative: 25F former smoker with long history of headaches presents with the chief complaint of a typical headache for her. It has been gradual in onset and is generalized in its distribution. She states at its worst it's 8/10 and currently 6/10. She admits to worsening with bright lights and loud noises. She denies recent trauma or injury. She's had no fever, chills, or neck pain. She denies any focal neurologic symptoms such as numbness, tingling, or weakness. What is different, however, is that she has had some occasional flashers/floaters in either eye. She denies any visual field cut or decreased vision. SHe's had no eye pain, redness, or discharge. She does not currently have any visual problem. She denies chest pain or shortness of breath. MD Complaint: headache and migraine Onset (ago): week(s) Onset description: gradual Location: diffuse Severity: moderate Severity scale (1-10): 8 Quality: aching, throbbing and similar to previous headaches Relieving factors: dark room Exacerbating factors: light and noise Associated symptoms: photophobia and sensitivity to sound Treatments prior to arrival: none Related Data Home Medications Medication Instructions Recorded Confirmed paroxetine HCl 10 mg tablet 10 mg PO DAILY 09/13/20 09/13/20 Previous Rx's Medication Instructions Recorded multivit no.42-iron 38 1 cap PO DAILY #90 cap 07/26/19 mg-methyltetrahydfolate 1 mg-dha 225 mg capsule acetaminophen 325 mg PO Q4-6H PRN #30 tab 12/01/19 acetaminophen 650 mg PO Q6H PRN #30 tab 12/01/19 ibuprofen 600 mg PO Q6H PRN #30 tab 12/01/19 desogestrel-e.estradiol 0.15 1 tab PO DAILY #84 tab 01/09/20 mg-0.02 mg(21)/e.estrad 0.01 mg(5) tablet hydroxyzine HCl 25 mg tablet 25 mg PO TID PRN #30 tab 09/13/20 Allergies Allergy/AdvReac Type Severity Reaction Status Date / Time adhesive tape Allergy Mild LOCAL Verified 09/13/20 16:03 RASH/HIVES sertraline [From Zoloft] AdvReac Mild [place] more Verified 09/13/20 16:05 anxious Review of Systems Constitutional Constitutional: Denies chills, Denies fatigue, Denies fever(s), Denies frequent falls, Reports headache(s), Denies lethargy and Denies weakness Eyes Eyes: Denies change in vision, Denies eye discharge, Reports floaters, Denies irritation and Denies loss of vision ENT Ears, Nose, Mouth, and Throat: Denies change in voice, Denies dizziness, Reports headache(s), Denies neck pain, Denies sore throat and Denies throat swelling Cardiovascular Cardiovascular: Denies chest pain, Denies irregular heart rhythm, Denies lightheadedness, Denies palpitations, Denies dyspnea, Denies dyspnea on exertion and Denies orthopnea Respiratory Respiratory: Denies cough, Denies dyspnea, Denies dyspnea on exertion and Denies wheezing Gastrointestinal Gastrointestinal: Denies abdominal pain, Denies change in bowel habits, Denies diarrhea, Denies nausea and Denies vomiting Musculoskeletal Musculoskeletal: Denies neck pain and Denies numbness Integumentary/Breasts Skin/Breast: Denies pruritus, Denies erythema, Denies rash and Denies wounds Neurologic Neurologic: Denies behavioral changes, Denies confusion, Denies dizziness, Denies frequent falls, Reports headache(s), Denies loss of vision, Denies numbness and Denies weakness Psychiatric Psychiatric: Denies anxiety, Denies behavioral changes, Denies confusion, Denies depression, Denies homicidal ideation and Denies suicidal ideation Endocrine Endocrine: Denies fatigue, Denies flushing and Denies palpitations Hematologic/Lymphatic Hematologic/Lymphatic: Denies easy bruising Allergic/Immunologic Allergic/Immunologic: Denies urticaria, Denies throat swelling and Denies wheezing Patient History Medical History (Updated 09/17/20 @ 21:02 by Mustapha Shea DO) Acne Chicken pox (~1995) Chlamydia infection (~2018) Generalized anxiety disorder with panic attacks Hormone disorder Irregular menstrual cycle Ovarian cyst Pyelonephritis Surgical History Anesthesia History of facial surgery Hx of tonsillectomy [place] teeth extracted Family History Grandmother Cancer Grandfather Heart disease Sister Hydrocephalus Father Hypertension Alcoholic Social History marital status: unmarried,living together number of children: 0 household members: significant other pets and animals: Yes (Dog) education level: college occupational status: employed current occupational exposures/hazards: No special killian needs: No leisure activities: exercise Smoking Status: Former smoker Smokeless tobacco user: other second hand exposure: No alcohol intake: former substance use type: does not use Smoking Status: Former smoker Exam Narrative Exam Narrative: GENERAL: [25] year old patient appears stated age. Well-nourished, well-developed patient, in mild distress. GCS 15 HEAD: Atraumatic. Normocephalic. EYES: Pupils equal round and reactive. Extraocular motions intact. No scleral icterus. No injection or drainage. Normal funduscopic exam ENT: Nose without bleeding, purulent drainage. Throat without erythema, tonsillar hypertrophy or exudate. Airway patent. Negative Brudzinski's, negative Kernig's NECK: Trachea midline. Non tender CARDIOVASCULAR: Regular rate and rhythm without murmurs, gallops, or rubs. RESPIRATORY: Clear to auscultation. Breath sounds equal bilaterally. No wheezes, rales, or rhonchi. GASTROINTESTINAL: Abdomen soft, non-tender, nondistended. EXTREMITIES: No edema or joint tenderness. BACK: Nontender without deformity or crepitance. No flank tenderness. NEURO: AOx3. SKIN: No rash or erythema of visible areas NIH Stroke Scale 1a. LOC: Patient is alert and keenly responsive (0) 1b. LOC Questions: Patient answers both LOC questions accurately (0) 1c. LOC Commands: Patient performs both tasks correctly (0) 2. Best Gaze: Normal (0) 3. Visual: No visual loss (0) 4. Facial palsy: Normal symmetrical movements (0) 5. Motor arm: No drift (0) 6. Motor leg: No drift (0) 7. Limb ataxia: Absent (0) 8. Sensory: Normal (0) 9. Best language: No aphasia; normal (0) 10. Dysarthria: Normal (0) 11. Extinction and inattention: No abnormality (0) NIHSS: 0 Initial Vital Signs Initial Vital Signs: Vital Signs Temperature 97.9 F 09/17/20 17:34 Pulse Rate 72 02/22/21 17:34 Respiratory Rate 16 09/17/20 17:34 Blood Pressure 129/78 09/17/20 17:34 Pulse Oximetry 99 09/17/20 17:34 Course Orders Ordered: ED Orders 09/17/20 20:16 CT head/brain wo con Stat Discontinued Medications Ketorolac Tromethamine (Ketorolac 60 Mg/2 Ml Vial) 15 mg IV NOW ONE Stop: 09/17/20 20:17 Last Admin: 09/17/20 20:27 Dose: 15 mg Documented by: MIRANDA Metoclopramide HCl (Metoclopramide 10 Mg/2 Ml Inj) 10 mg IV NOW ONE Stop: 09/17/20 20:17 Last Admin: 09/17/20 20:27 Dose: 10 mg Documented by: MIRANDA Reevaluation(s) Reevaluation #1: Patient feeling significant improvement in symptoms with the above-stated therapies Vital Signs Vital signs: Vital Signs - 8 hr 09/17/20 17:34 09/17/20 21:10 Temperature 97.9 F Pulse Rate 72 67 Respiratory Rate 16 14 Blood Pressure 129/78 116/84 Pulse Oximetry 99 99 MDM - Headache Imaging Data CT scan - head: Radiologist's Impression: Maty Roa N 25 F [address] Scan ReportSigned Patient: Maty Roa [facility]#: [id number]: 1995Acct:[id number]/Sex: 25 / FDate of Service: 09/17/20Loc: EDAccession Number: [id number] Procedure: CT head/brain wo con Ordering Provider: Mustapha Shea D.O. PROCEDURE: CT HEAD/BRAIN WO CON INDICATIONS: severe headaches with vision changes TECHNIQUE: Noncontrast 4.5 mm thick angled axial sections acquired from the foramen magnum to the vertex, with coronal and sagittal reformats. For radiation dose reduction, the following was used: automated exposure control, adjustment of mA and/or kV according to patient size. COMPARISON: None. FINDINGS: Image quality: Excellent. CSF spaces: Basal cisterns are patent. No extra-axial fluid collections. Ventricles are normal in size and shape. Brain: No midline shift. No intracranial masses or hemorrhage. Villaseñor-white matter interface is normal. Skull and face: Calvarium and visualized facial bones are intact, without suspicious lesions. Sinuses: Visualized sinuses and mastoids are clear. IMPRESSION: No hemorrhage found, no mass effect is identified. Source of pain is not seen. Dictated by: Raulito Najera M.D. on 09/17/2020 at 20:42 Approved by: Raulito Najera M.D. on 09/17/2020 at 20:43 [facility] Narrative Medical decision making narrative: Headache considerations include, but not limited to: Subarachnoid hemorrhage, but unlikely as patient denies sudden onset of pain, not worst of life, or neck pain Meningitis considered, but thought unlikely given lack of Brudzinski's, Kernig's sign, altered mental status or fever Giant cell arteritis considered, but thought unlikely given lack of unilateral findings, pain in worship, vision change HTN Emergency considered, but thought unlikely given normal vitals Other serious diagnoses considered unlikely given lack of red flag findings such as sudden onset, increasing frequency, immunocompromise, systemic signs (fever, chills, stiff neck, or rash), focal neurologic findings, trauma, blood thinners, etc. Discharge Plan Departure Patient Disposition: Home Clinical Impression: Atypical migraine Instructions: DI for Headache Activity Restrictions/Additional Instructions: *You have been diagnosed with [atypical migraine type headache. Exam and CT scan are very reassuring. There may be an element of medication changes which are playing a role but it is hard to tell.] *What to do: *Take medications as directed *Follow up with your primary care provider in 2-3 days, call for an appointment. Let them know you were seen in the Emergency Department and that we ask that you be seen in follow up *Return to ER if you should have any new, worsening or concerning symptoms, such as [confusion, fever greater than 101 F, focal neurologic findings such as numbness, weakness, tingling, worsening vision change or other bothersome symptoms] Prescriptions: No Action multivit no.82-fjoq-qnoaik-dha 38-1-225 mg capsule 1 cap PO DAILY Qty: 90 RF: 4 desog-e.estradiol/e.estradiol [Kariva (28)] 0.15-0.02 mgx21 /0.01 mg x 5 tablet 1 tab PO DAILY Qty: 84 RF: 5 paroxetine HCl [Paxil] 10 mg tablet 10 mg PO DAILY RF: 0 hydroxyzine HCl 25 mg tablet 25 mg PO TID PRN (Reason: anxiety) Qty: 30 RF: 1 acetaminophen 325 mg tablet 650 mg PO Q6H PRN (Reason: section) Qty: 30 RF: 1 ibuprofen 600 mg tablet 600 mg PO Q6H PRN (Reason: section) Qty: 30 RF: 1 acetaminophen 325 mg tablet 325 mg PO Q4-6H PRN (Reason: section) Qty: 30 RF: 1 Referrals: Burke Bautista DO [Primary Care Provider] -
--- NOTE | 2020-09-17 20:16 | DI.CT.S_ITS ---
PROCEDURE: CT HEAD/BRAIN WO CON INDICATIONS: severe headaches with vision changes TECHNIQUE: Noncontrast 4.5 mm thick angled axial sections acquired from the foramen magnum to the vertex, with coronal and sagittal reformats. For radiation dose reduction, the following was used: automated exposure control, adjustment of mA and/or kV according to patient size. COMPARISON: None. FINDINGS: Image quality: Excellent. CSF spaces: Basal cisterns are patent. No extra-axial fluid collections. Ventricles are normal in size and shape. Brain: No midline shift. No intracranial masses or hemorrhage. Villaseñor-white matter interface is normal. Skull and face: Calvarium and visualized facial bones are intact, without suspicious lesions. Sinuses: Visualized sinuses and mastoids are clear. IMPRESSION: No hemorrhage found, no mass effect is identified. Source of pain is not seen. Dictated by: Raulito Najera M.D. on 09/17/2020 at 20:42 Approved by: Raulito Najera M.D. on 09/17/2020 at 20:43
[2020-09-17] MEDS: KETOROLAC 60 MG/2 ML VIAL 15 MG IV (20:27)
[2020-09-17] MEDS: METOCLOPRAMIDE 10 MG/2 ML INJ IV (20:27)
[2020-09-17 21:10] VITALS: BP 116/84; PULSE 67; RESP 14; O2SAT 99
== END 2020-09-17 21:10 | disposition home or self-care (01) ==
PROVIDERS: Emergency Provider Emergency Medicine; PCP Family Medicine
DX: G43.009 Migraine without aura, not intractable, without status migrainosus (principal); H53.9 Unspecified visual disturbance
CPT/HCPCS: 36415; 70450; 96374; 96375; 99284; J1885; J2765

== ENCOUNTER → 2020-10-15 14:45 | Outpatient (CLI) | payer OTHER, MEDICAID, SELFPAY ==
[2020-10-15 15:33] LABS: Add Manual Diff / Slide Review NO; Basophils Absolute Auto 0 /uL (0-100); Basophils Percent Auto 0.6 % (0-2); Eosinophils Absolute Auto 100 /uL (0-450); Eosinophils Percent Auto 1.3 % (2-4); Hematocrit 39.2 % (36-46); Hemoglobin 13.1 g/dL (12.0-16.0); Lymphocytes Absolute Auto 2100 /uL (1100-4500); Lymphocytes Percent Auto 37.1 % (25-40); Mean Corpuscular HGB Conc 33.3 % (30-36); Mean Corpuscular Hemoglobin 29.3 PG (26-34); Monocytes Absolute Auto 400 /uL (0-900); Monocytes Percent Auto 7.1 % (3-14); Neutrophils Absolute Auto 3100 /uL (1500-7000); Neutrophils Percent Auto 53.9 % (50-75); Platelet Count 229 X10^3/uL (150-400); Red Blood Cell Count 4.46 X10^6/uL (4.0-5.2); Red Cell Distribution Width 13.6 % (11.6-14.8); White Blood Cell Count 5.8 X10^3/uL (4.5-11.0)
[2020-10-15 15:50] LABS: Alanine Aminotransferase 12 IU/L (<35); Albumin 4.5 g/dL (3.5-5.0); Albumin Globulin Ratio 1.7 (1.0-2.8); Alkaline Phosphatase 88 U/L (38-126); Aspartate Aminotransferase 21 IU/L (14-36); Bilirubin Total 0.3 mg/dL (0.2-1.3); Blood Urea Nitrogen 14 mg/dL (7-17); Calcium 9.1 mg/dL (8.4-10.2); Carbon Dioxide 25 mmol/L (22-32); Chloride 104 mmol/L (98-107); Estimated Glomerular Filt Rate > 60.0 mL/min (>60); Globulin 2.6 g/dL (1.7-4.1); Glucose 83 mg/dL (70-100); HEMOLYSIS < 15 (0-50); Potassium 4.1 mmol/L (3.4-5.1); Sodium 138 mmol/L (137-145); Total Protein 7.1 g/dL (6.3-8.2)
--- OUTSIDE RECORDS SUMMARY | 2020-12-26 08:41 | XMS_ITS | Referral Summary ---
:1995 Author Organization [facility] Address [address] [place] [address] Care Team Providers Name Role Phone DO Michele Primary Care Provider Reason for Referral Surgical (Routine) Status Reason Specialty Diagnoses / Referred By Referred To Procedures Contact Contact Closed Specialty General Surgery Diagnoses Calculus of gallbladder and bile duct without cholecystitis or obstruction Rajan Melendez MD HOSPITAL Required [address] [place] [id number] [place] [address] Phone: Electronically signed by Rajan Melendez MD atDiagnostic Imaging (Emergency) Status Reason Specialty Diagnoses / Referred By Referred To Procedures Contact Contact Closed Specialty Radiology Diagnoses Abdominal pain, unspecified abdominal location Rajan Melendez, [facility] Us Services Required Procedures US ABDOMEN COMPLETE MD [address] [place] [address] Phone: Electronically signed by Rajan Melendez MD at Reason for Visit Reason Comments Abdominal Pain Encounter Details Date Type Department Care Team Description 12/21/2020 Office Visit [facility] Rajan Melendez, Calculus of gallbladder and bile duct without cholecystitis or obstruction (Primary Dx); Clinics Urgent Care Abdominal pain, unspecified abdominal lo cation [facility] [address] [place] [address] [phone] Allergies Active Allergy Reactions Severity Noted Date Comments Adhesive Tape-Silicones Rash Low 02/14/2017 Hydroxyzine 12/21/2020 High blood pres sure documented as of this encounter (statuses as of 12/21/2020) Medications Medication Sig Dispensed Refills Start Date End Date Status 25/iron Take by mouth 0 Active fum/folic/dha (-1 ORAL) ondansetron ODT Take 4 mg by 0 A ctive (ZOFRAN-ODT) 4 mg mouth every 8 disintegrating tablet (eight) hours as needed for nausea or vomiting hydrOXYzine (ATARAX) 25 take 1 tablet by 0 1 Active mg tablet mouth three times a day if needed for anxiety ibuprofen Take 600 mg by 0 Activ e (ADVIL,MOTRIN) 600 mg mouth every tablet morning acetaminophen (TYLENOL) Take 500 mg by 0 Active 500 mg tablet mouth every morning documented as of this encounter (statuses as of 12/21/2020) Active Problems Problem Noted Date Panic attack 09/11/2020 Last Assessment & Plan: Newly identified Most likely vasovagal syncope due to pre sence of symptoms, previous vasovagal syncopal episode EKG normal in office, all screening labs were normal Patient has been experiencing very high anxiety, and also side effects of her medication Discussed hydroxyzine for as needed anxi ety symptoms? but is unable to use this due to breast-feeding status Discussed progressive relaxation techniq ues, breathing retraining and discontinuing sertraline Advised patient to stop monitoring his b lood pressure, as it is normal today in office at 128/86 Cardiac and neurological exam completely normal, patient's labs were unremarkable and she has had her thyroid checked in the past 2 months. Current moderate episode of major depressive disorder 09/04/2020 Last Assessment & Plan: Psychological condition is newly identified. Medication changes per orders. PHQ-9 sc ore is 18. No SI/HI Psychological condition will be reasses sed in 2 weeks. Migraine with aura and without status migrainosus, not intractable 09/04/2020 Last Assessment & Plan: Headaches are unchanged. Advised to keep a headache diary. Continue ibuprofen and Tylenol as needed , will consider adding on an as needed abortive medication for migraines in the future if they persist anxiety 07/30/2020 Last Assessment & Plan: Worsening Discontinue sertraline, start Paxil 10 m g nightly Cannot use hydroxyzine due to breast-fee ding status, discussed adjunctive treatments for episodes of high anxiety including progressive muscle relaxation techniques, breathing retraining and meditation Patient was significantly less anxious a t the end of the visit, and reassured that the work-up was benign and there are no identifiable alternative causes of her symptoms , first, first trimester 05/04/2019 documented as of this encounter (statuses as of 12/21/2020) Immunizations Name Administration Dates Next Due FLU PF 6+Mos Quad (Fluzone, 05/04/2019 FluLaval, Fluarix) HPV 4-valent (Gardasil) 05/27/2010, 08/27/2009, 05/31/2009, 05/12/2008 MMR (M-M-R II) 12/06/1997 OPV 12/05/1998 documented as of this encounter Social History Tobacco Use Types Packs/Day Years Used Date Never Smoker Smokeless Tobacco: Current User Comments: vaping Alcohol Use Drinks/Week oz/Week Comments Not Currently Sex Assigned at Date Recorded Not on file Job Start Date Occupation Industry Not on file Not on file Not on file documented as of this encounter Last Filed Vital Signs Vital Sign Reading Time Taken Comments Blood Pressure 120/74 12/21/2020 9:13 AM PDT Pulse 88 12/21/2020 9:13 AM PDT Temperature 36.6 ??C (97.9 ??F) 12/21/2020 9:13 AM PDT Respiratory Rate 18 12/21/2020 9:13 AM PDT Oxygen Saturation 98% 12/21/2020 9:13 AM PDT Inhaled Oxygen Concentration - - Weight 87.3 kg (192 lb 6.4 oz) 12/21/2020 9:13 AM PDT Height 174 cm (5' 8.5) 12/21/2020 9:13 AM PDT Body Mass Index 28.83 12/21/2020 9:13 AM PDT documented in this encounter Patient Instructions Patient InstructionsRajan Melendez MD - 12/21/2020 8:40 AM PDTWe are ordering some blood work and an ultrasound. I will call you with the results. documented in this encounter Progress Notes Rajan Melendez MD - 12/21/2020 8:40 AM PDT [facility] Urgent Care Clinic Note Patient Name: Maty Bee Date of : 1995 Reason for visit: had concerns including Abdominal Pain. Subjective History of Present Illness Maty Bee is a 25 y.o. female with a past medical history of anxiety who presents today with right upper quadrant and epigastric pain. No change in bowel habits. No fever. No nausea or vomiting. Patient reports she is had right upper quadrant pain off and on for the last coupleof years starting during her . Patient reports her mother just had a cholecystectomy last month. Patient presents with upper abdominal pain x 1 week. Patient states that she is a year and has had this problem on and off. She has a family hx of stomach ulcers. Abdominal Pain This is a new problem. The current episode started in the past 7 days. The onset quality is gradual.The problem occurs constantly. The most recent episode lasted 7 days. The problem has been graduallyworsening. The pain is located in the RUQ and epigastric region. The pain is at a severity of 3/10. The pain is mild. The quality of the pain is sharp and aching. The abdominal pain does not radiate. Th e pain is aggravated by eating (drinking alcohol). The pain is relieved by palpation. She has tried antacids (colace) for the symptoms. The treatment provided moderate relief. Past Medical History: Diagnosis Date ??? Anxiety ??? Hormone disorder Higher testerone levels ??? Ovarian cyst 05/05/2010 Ovarian cyst ruptured ??? Pyelonephritis 2-3 years ago and was hospitalized for this Past Surgical History: Procedure Laterality Date ??? SECTION 11/2019 ??? FACIAL LACERATIONS REPAIR 02/06/2014 ??? TONSILLECTOMY 2010 Allergies Allergen Reactions ??? Hydroxyzine High blood pressure ??? Adhesive Tape-Silicones Rash Family History Problem Relation Age of Onset ??? Hydrocephalus Sister shunt ??? Asthma Mother's Brother ??? Lung cancer Maternal Grandmother ??? Heart disease Maternal Grandfather ??? Hypertension Mother ??? Hypertension Father Social History Patient reports that she has never smoked. She uses smokeless tobacco. She reports previous alcohol use. She reports previous drug use. Frequency: 3.00 times per week. Drug: Marijuana. Current Medication List Sig acetaminophen (TYLENOL) 500 mg tablet Take 500 mg by mouth every morning ibuprofen (ADVIL,MOTRIN) 600 mg tablet Take 600 mg by mouth every morning hydrOXYzine (ATARAX) 25 mg tablet take 1 tablet by mouth three times a day if needed for anxiety ondansetron ODT (ZOFRAN-ODT) 4 mg disintegrating tablet Take 4 mg by mouth every 8 (eight) hours asneeded for nausea or vomiting 25/iron fum/folic/dha (-1 ORAL) Take by mouth Immunization History Administered Date(s) Administered ??? FLU PF 6+Mos Quad (Fluzone, FluLaval, Fluarix) 05/04/2019 ??? HPV 4-valent (Gardasil) 05/12/2008, 05/31/2009, 08/27/2009, 05/27/2010 ??? MMR (M-M-R II) 12/06/1997 ??? OPV 12/05/1998 Review of Systems Gastrointestinal: Positive for abdominal pain. Objective Vital Signs BP 120/74 Pulse 88 Temp 36.6 ??C (97.9 ??F) Resp 18 Ht 1.74 m Wt 87.3 kg SpO2 98% BMI 28.83 kg/m?? Physical Exam Vitals and nursing note reviewed. Constitutional: Appearance: Normal appearance. Cardiovascular: Rate and Rhythm: Normal rate and regular rhythm. Pulmonary: Effort: Pulmonary effort is normal. Breath sounds: Normal breath sounds. Abdominal: General: Abdomen is flat. Bowel sounds are normal. Palpations: Abdomen is soft. Tenderness: There is abdominal tenderness in the right upper quadrant and epigastric area. There is no guarding or rebound. Negative signs include Boo's sign. Comments: Minimally tender to palpation Neurological: Mental Status: She is alert. Psychiatric: Mood and Affect: Mood normal. Behavior: Behavior normal. Thought Content: Thought content normal. Judgment: Judgment normal. Orders Placed This Encounter Procedures ??? US ABDOMEN COMPLETE Standing Status: Future Number of Occurrences: 1 Standing Expiration Date: 03/23/2022 Order Specific Question: Is this exam for pre-biopsy evaluation? Answer: No Order Specific Question: Release to patient Answer: Immediate ??? Complete blood count with diff Standing Status: Future Number of Occurrences: 1 Standing Expiration Date: 12/21/2021 Order Specific Question: Release to patient Answer: Immediate ??? Comprehensive Metabolic Panel Scheduling Instructions: STAT ??? Lipase Scheduling Instructions: STAT Order Specific Question: Release to patient Answer: Immediate US ABDOMEN COMPLETE Result Date: 12/21/2020 [facility] [place]. [address] PATIENT NAME: MATY BEE : 1995 GENDER: F ACCOUNT #: EXAM DATE: 12/21/2020 11:11 ORDERED FROM: [facility] ORDERING PHYSICIAN: RAJAN MELENDEZ CC: -- - - - CONTRAST: READING STATION ID: [id number] mGy: PROCEDURE: US ABDOMEN COMPLETE INDICATIONS: right upper quadrant pain. r/o cholecystitis TECHNIQUE: Real-time scanning was performed of the abdominal and retroperitoneal organs, with image documentation. COMPARISON: None. FINDINGS: Liver: Liver is normal in size and homogeneous in echotexture. Gallbladder: Normally distended gallbladder. No gallbladder wall thickening or pericholecystic fluid. Thereare multiple gallstones near the gallbladder neck which do not appear to be mobile and are potentially impacted. The largest stone is 1.6 centimeters in diameter. Biliary ducts: Normal caliber. Panc reas: Visualized portions of the pancreas are sonographically normal. Spleen: Spleen is normal in size and homogeneous in echotexture. Kidneys: Both kidneys normal in size and appearance. No shadowing calculus or hydronephrosis. Aorta: Visualized aorta is normal in caliber at less than 3 cm. Iliacs: Proximal common iliac arteries are normal in caliber at less than 2.5 cm. IVC: Intrahepatic inferior vena cava is patent. Miscellaneous: No free abdominal fluid. IMPRESSION: Cholelithiasis with a few stones in the gallbladder neck which are potentially impacted, largest measuring 1.6 centimeters. Consider surgical consultation. Reviewed by: Brennon Urban M.D. on 12/21/2020 at11:47 Approved by: Brennon Urban M.D. on 12/21/2020 at 11:48 Assessment and Plan Encounter Diagnoses Name Primary? Abdominal pain, unspecified abdominal location ??? Calculus of gallbladder and bile duct without cholecystitis or obstruction Yes No orders of the defined types were placed in this encounter. MDM DDX: History was obtained from independent historian and/or patient. Time spent reviewing history, past medical problems, and medications. Any xisil-to-oflp testing and results discussed with patient prior to discharge. Pertaining to asked questions, provided reassurance, educated on the diagnosis of the time of discharge. Education printed for patient to review at home. I discussed return precautions for worsening symptoms or lack of improvment Pt is well appearing andis appropriate for outpatient monitoring at this time. MDM Number of diagnoses and management options: Diagnosis Plan 1. Calculus of gallbladder and bile duct without cholecystitis or obstruction Ambulatory referral to General Surgery 2. Abdominal pain, unspecified abdominal location POCT urinalysis dip only POCT hCG, , urine Complete blood count with diff Comprehensive Metabolic Panel Lipase US ABDOMEN COMPLETE Acute illness with systemic symptoms requiring additional tests Amount and/or Complexity of Data Reviewed: Clinical labs tests ordered:as above Review and summarize past medical records: yes Risk of Complications, Morbidity, and/or Mortality: Presenting problems: moderate Management options: moderate Billing wizard used to determine complexity of care. Patient Instructions We are ordering some blood work and an ultrasound. I will call you with the results. Labs are essentially normal. The ultrasound did show a number of gallstones including one that was immobile in the opening of the gallbladder. No signs of cholecystitis. Abdominal exam was benign. Patient was given ER precautions and referred to general surgery for evaluation for cholecystectomy Portions of today's documentation have been created with the assistance of voice recognition software. Therefore, it may contain anomalous punctuation, anomalous independent misrecognitions, word substitutions, insertions or omissions. Occasional wrong-word or sound- alike substitutions may also occur, all due to the inherent limitations of voice recognition software. Attempts to correct the above have been made by Rajan Melendez MD, but it is recommended that the chart be read carefully to recognize, using context, where the substitutions may have occurred. Electronically signed by: Rajan Melendez MD 12/21/2020lectronically signed by Rajan Melendez MD at 12/21/2020 12:33 PM PDT documented in this encounter Plan of Treatment Scheduled Referrals Name Type Priority Associated Diagnoses Order S [facility] Ambulatory referral Outpatient Referral STAT Calculus of O rdered: to General Surgery gallbladder and bile 0 12/21/2020 duct without cholecystitis or obstruction documented as of this encounter Procedures Procedure Name Priority Date/Time Associated Comments Diagnosis LIPASE STAT 12/21/2020 10:06 Abdominal pain, Results for this AM PDT unspecified procedure are i n abdominal location the resul ts section. COMPREHENSIVE STAT 12/21/2020 10:06 Abdominal pain, Results for this METABOLIC PANEL AM PDT unspecified procedure ar e in abdominal location the resul ts section. POCT HCG, , STAT 12/21/2020 9:01 Abdominal pain, Results for this URINE AM PDT unspecified procedure are i n abdominal location the resul ts section. POCT URINALYSIS DIP STAT 12/21/2020 9:00 Abdominal pain, R esults for this ONLY AM PDT unspecified procedure are i n abdominal location the resul ts section. documented in this encounter Results US ABDOMEN COMPLETE (12/21/2020 11:40 AM PDT) Specimen Narrative Performed At [facility] [address] [place] [address]. [address] PATIENT NAME: MATY BEE : 1995 GENDER: F ACCOUNT #: EXAM DATE: 12/21/2020 ?? 11:11 ORDERED FROM: [facility] ORDERING PHYSICIAN: RAJAN MELENDEZ CC: ??-- ??- ??- ??- CONTRAST: ? READING STATION ID: [id number] mGy: PROCEDURE: ??US ABDOMEN COMPLETE INDICATIONS: ??right upper quadrant pain. ??r/o cholecystitis TECHNIQUE: ?? Real-time scanning was performed of the abdominal and retroperitoneal organs, with image docum entation. ?? COMPARISON: ??None. FINDINGS: ?? Liver: ??Liver is normal in size and homogeneous in echotexture. ?? Gallbladder: ??Normally distended gallbladder. ??No gallbladder wall thickening or pericholecystic fluid. ??There are multiple gallstones near the gallbladder n petra which do not appear to be mobile and are potentially impacted. ??The largest stone is 1.6 centimeters in diameter. Biliary ducts: ??Normal caliber. Pancreas: ??Visualized portions of the pancreas are sonographically normal. ?? Spleen: ??Spleen is normal in size and homogeneous in echotexture. ?? Kidneys: ??Both kidneys normal in size and appearance. ??No shadowing calculus or hydronephrosi s. Aorta: ??Visualized aorta is normal in caliber at less than 3 cm. ?? Iliacs: ??Proximal common iliac arteries are normal in caliber at less than 2.5 cm. ?? IVC: ??Intrahepatic inferior vena cava i s patent. ?? Miscellaneous: ??No free abdominal fluid . ?? IMPRESSION: ??Cholelithiasis with a few stones in the gallbladder neck which are potentially impacted, large st measuring 1.6 centimeters. ??Consider surgical consultation. Reviewed by: Brennon Urban M.D. on 12/21/2020 at 11:47 ? Approved by: Brennon Urban M.D. on 2020 at 11:48 ? Procedure Note Interface, Radiology Results In - 2020 11:49 AM [facility] [address] [place] [address]. [id number] PATIENT NAME: MATY BEE : 1995 GENDER: F ACCOUNT #: EXAM DATE: 12/21/2020 11:11 ORDERED FROM: [facility] ORDERING PHYSICIAN: RAJAN MELENDEZ CC: -- - - - CONTRAST: READING STATION ID: [id number] mGy: PROCEDURE: US ABDOMEN COMPLETE INDICATIONS: right upper quadrant pain. r/o cholecystitis TECHNIQUE: Real-time scanning was performed of the abdominal and retroperitoneal organs, with image documentation. COMPARISON: None. FINDINGS: Liver: Liver is normal in size and homo geneous in echotexture. Gallbladder: Normally distended gallbla dder. No gallbladder wall thickening or pericholecystic fluid. There are multiple gallstones near the gallbladder neck which do not appear to be mobile and are potentially impacted. The largest stone is 1.6 cent imeters in diameter. Biliary ducts: Normal caliber. Pancreas: Visualized portions of the pa ncreas are sonographically normal. Spleen: Spleen is normal in size and ho mogeneous in echotexture. Kidneys: Both kidneys normal in size an d appearance. No shadowing calculus or hydronephrosis. Aorta: Visualized aorta is normal in ca liber at less than 3 cm. Iliacs: Proximal common iliac arteries are normal in caliber at less than 2.5 cm. IVC: Intrahepatic inferior vena cava is patent. Miscellaneous: No free abdominal fluid. IMPRESSION: Cholelithiasis with a few s tones in the gallbladder neck which are potentially impacted, largest measuring 1.6 centimeters. Consider surgical consultation. Reviewed by: Brennon Urban M.D. on 2020 at 11:47 Approved by: Brennon Urban M.D. on 2020 at 11:48 Performing Organization Address City/State/ZIP Code [facility] e Number [facility] [address] [place] [id number] Lipase (12/21/2020 10:06 AM PDT) Pathologist Sig nature Lipase 27 13 - 60 U/L [facility] Specimen Blood - Venous blood (substance) Performing Organization Address City/State/ZIP Code Phon e Number [facility] [address] [facility] [id number] Comprehensive Metabolic Panel (12/21/2020 10:06 AM PDT) Pathologist Sig [facility] Sodium 141 134 - 144 mmol/L [facility] Potassium 5.0 3.5 - 5.2 mmol/L [facility] Chloride 103 97 - 108 mmol/L [facility] CO2 29 18 - 29 mmol/L [facility] Anion Gap 9 3 - 11 mmol/L [facility] BUN 10.0 6.0 - 20.0 mg/dL [facility] Creatinine 0.65 0.57 - 1.00 [facility] mg/dL [facility] Glucose, Serum 82 65 - 99 mg/dL [facility] Calcium 9.7 8.5 - 10.1 mg/dL [facility] AST 17 0 - 50 U/L [facility] ALT 14 0 - 32 U/L [facility] Alkaline Phosphatase 101 25 - 150 U/L [facility] Total Protein 7.2 6.4 - 8.4 g/dL [facility] eGFR (CKD-EPI) 122 >60 (CKD-EPI) [facility] mL/min/1.73 m2 [facility] Albumin 4.9 3.4 - 5.0 g/dL [facility] Bilirubin, Total 0.3 <=1.2 mg/dL [facility] BUN/Creatinine Ratio 15.4 7.0 - 24.0 [facility] Specimen Blood - Venous blood (substance) Performing Organization Address City/[facility]/ZIP [facility] Phon e Number [facility] [address] [facility] [phone] POCT hCG, , urine (12/21/2020 9:01 AM PDT) Preg Test, Ur Negative Negative [facility] POCT (CLIA [id number]) Test, The office administration [facility] Urine Comment POCT stated sensitivity POCT (CLIA for positive is 20 [id number]) mIU/mL for this methodology. If a quantitative result is needed, order [id number] HCG, Quantitative. HCG Urine Internal Yes Yes [facility] Control Valid? POCT (CLIA [id number]) HCG Urine Lot# [id number] [facility] POCT (CLIA [id number]) HCG Urine Lot Exp 2022-03-26 [facility] Date POCT (CLIA [id number]) Specimen Urine - Urine specimen obtained by clean catch procedure (specimen) Performing Organization Address City/State/ZIP Code Phon e Number [facility] POCT (CLIA [address] [place] [address] [id number]) POCT urinalysis dip only (12/21/2020 9:00 AM PDT) Color, UA Yellow Yellow [facility] POCT (CLIA [id number]) Clarity, UA Clear Clear [facility] POCT (CLIA [id number]) Specific [place], 1.015 1.001 - 1.035 [facility] POCT UA (CLIA [id number]) pH, UA 7.0 5 - 9 [facility] POCT (CLIA [id number]) Leukocytes, UA Negative Negative [facility] POCT (CLIA [id number]) Nitrite, UA POC Negative Negative [facility] POCT (CLIA [id number]) Protein, UA Negative Negative mg/dL [facility] POCT (CLIA [id number]) Glucose, UA Negative Negative mg/dL [facility] POCT (CLIA [id number]) Ketones, UA Negative Negative [facility] POCT (CLIA [id number]) Urobilinogen, UA 0.2 (Normal) <1.0 mg/dL [facility] POCT (CLIA [id number]) Bilirubin, UA Negative Negative [facility] POCT (CLIA [id number]) Blood/Hemoglobin, Trace Negative - Trace [facility] POCT UA mg/dL (CLIA [id number]) Specimen Urine - Urine specimen obtained by clean catch procedure (specimen) Performing Organization Address City/State/ZIP Code Phon e Number [facility] POCT (CLIA [address] [place], [place] [id number]) documented in this encounter Visit Diagnoses Diagnosis Calculus of gallbladder and bile duct wi thout cholecystitis or obstruction - Primary Abdominal pain, unspecified abdominal lo cation documented in this encounter Insurance Payer Benefit Plan / Subscriber ID Effective Dates Phone Addre ss Type Group [employer] [id number] 2019-Presen MEDICAID MANAGED OPTIONS t [phone] (Home) [place] [address] (Work) documented as of this encounter Advance Directives Documents on File Type Date Recorded 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
== END ==
PROVIDERS: PCP Family Medicine; Referring Provider Family Medicine; Visit Provider Family Medicine
DX: R10.13 Epigastric pain (principal)
CPT/HCPCS: 36415; 80053; 85025

== ENCOUNTER → 2021-02-04 10:05 | Outpatient (CLI) | payer OTHER, MEDICAID, SELFPAY ==
[2021-02-04 11:09] LABS: COVID19 -Nasal RAPID Negative (Negative)
== END ==
PROVIDERS: PCP Family Medicine; Visit Provider Surgery
DX: Z20.822 Contact with and (suspected) exposure to COVID-19 (principal)
CPT/HCPCS: 87635; C9803

== ENCOUNTER 2021-02-05 06:32 | Observation (INO) | payer OTHER, MEDICAID, SELFPAY ==
[2021-01-29 15:11] VITALS: BMI 28.0
[2021-02-05] VITALS (16 sets, daily range): BP systolic 87–138; BP diastolic 63–87; PULSE 59–88; RESP 12–20; TEMP 36.2–36.9; O2SAT 96–100; BMI 28.0
--- NOTE | 2021-02-05 | PATH_ITS ---
[facility] Accession Number: [id number] . 01 Material submitted: . gallbladder - GALLBLADDER . 02 Diagnosis: Gallbladder, Cholecystectomy: Obstructed cholelithiasis of the cystic duct with mild chronic cholecystitis. No evidence of neoplasm. MRV 02/08/2021 1643 Local . 02 Electronically signed: . Krzysztof Boyd MD, PhD, Pathologist NPI- [id number] . 01 Gross description: . The specimen is received in formalin and labeled with gallbladder. It consists of a 6.2 cm in length x 2.9 cm in diameter intact gallbladder, stapled at one end. The serosa is purple-dee smooth and glistening and focally congested. The 0.2 cm in diameter patent cystic duct margin is inked black and shaved. The specimen is opened along its entire length to reveal brown-red, diffusely congested, flattened mucosa and julio that range from 0.2 to 0.5 cm in thickness. A 1.9 cm in diameter rounded yellow-dee bosselated calculus is found lodged near the cystic duct. Founder / Ceo sections are submitted. . Summary of Sections: A1 = Gallbladder, three pieces. ([id number]) /[facility] 02/06/2021 1706 Local . 02 Pathologist provided ICD-10: K80.11 . 02 CPT . 105694 Performed at: 01 [facility] [address], [place], [place] [id number] MD Kemar Pa MD Phone: [phone] Performed at: 02 [facility] [address] [place], [place] [id number] MD Nikole Branch MD Phone: [phone]
[2021-02-05] MEDS: LACTATED RINGERS 1,000 ML 100 ML IV ×4 (07:14→21:08)
[2021-02-05] MEDS: ACETAMINOPHEN 325 MG TABLET 975 MG PO (07:15)
[2021-02-05] MEDS: SCOPOLAMINE 1 PATCH TOP (07:16)
[2021-02-05] MEDS: GABAPENTIN 300 MG CAPSULE PO (07:16)
--- NOTE | 2021-02-05 07:27 | PM.PREOP ---
Pre-operative Note Interval Note History & Physical reviewed/Exam performed by Physician: Yes Changes to H&P: No
[2021-02-05] MEDS: CEFAZOLIN 1 GM VIAL 2 GM IV (07:55)
--- NOTE | 2021-02-05 08:07 | SUR.OPER ---
Supine on padded OR bed, head on pillow, safety belt at thigh, left arm padded and tucked at side. Right arm secured on padded arm board <90 degrees abduction. Legs uncrossed. Padded footboard in place. Tape over blanket to secure lower legs.
[2021-02-05] MEDS: BUPIVACAINE 0.25% (PF) VIAL 30 ML INJ (08:13)
[2021-02-05] MEDS: TRANEXAMIC ACID 1,000 MG in SODIUM CHLORIDE 0.9% 100 ML 200 ML IV (09:11)
[2021-02-05] MEDS: fentaNYL 100 MCG/2 ML INJ IV ×4 (10:35→10:56)
--- NOTE | 2021-02-05 10:36 | P.OP_ITS ---
Operative Date/Time/Diagnoses Date of procedure: 02/05/21 Time of procedure: 10:36 Pre-op diagnosis: Biliary colic Post-op diagnosis: other (Biliary colic, acute blood loss) Procedure & Clinicians Procedure: Laparoscopic cholecystectomy Same procedure as scheduled: Yes Indications: Biliary colic Surgeon: Nabil Fenton Anesthesia Type: General Operative Notes Findings: Chronic cholecystitis, large gallstones, persistent oozing from skin incision Specimen(s): other (gallbladder) Estimated Blood Loss (mL): 400 Procedure in detail: The patient was placed supine on the table and bilateral lower extremity compression devices were applied. Anesthesia was induced they were intubated with an endotracheal tube and received 2g of Ancef. A time-out was performed. They were prepped and draped in sterile fashion. An infraumbilical incision was made, the umbilical stalk was elevated and the fascia was sharply incised entering the abdomen atraumatically. A blunt tip 12mm balloon trocar was then inserted, pneumoperitoneum was established and inspection of the abdomen demonstrated no evidence of injury. They were placed head up and right side up and then a 11 mm port was placed high in the epigastrium and two 5mm in the right upper quadrant. The gallbladder was notable for chronic cholecystitis, multiple adhesions between omentum and gallbladder which were taken down. The gallbladder was grasped by the fundus and retracted over the liver and retracted laterally by the infundibulum which was difficult as it was full of large immobile stones. Using electrocautery the lateral plane between the gallbladder and the liver was opened towards the fundus. The gallbladder was then retracted laterally and the medial plane was developed in the same manner. With the gallbladder mobilized the bottom of the cystic plate was visualized. The hepatocystic triangle was meticulosly skeletonized using both blunt dissection and hook electrocautery of all fat and fibrous tissue from both the front and the back. Only two structures were then clearly seen entering the gallbladder the cystic duct and the cystic artery. W ith the critical view of safety fully established the cystic duct was clipped twice proximally and once distally using the 10 mm hemo clip applied under direct visualization and then sharply divided. The cystic artery was divided in the same fashion. The gallbladder was removed from the liver bed using electro cautery. There was persistent bleeding from likely a posterior branch of cystic artery that was difficult to control, an additional clip was placed which was not successful. I could not safely isolate it in order to clip it further or cauterize it. Direct pressure was held for 10 min and she recieved TXA. After these measures I had my partner Dr. Javed assist as we made a careful inspection of the area. No further active bleeding was observed. This was tested by elevating the systolic blood pressure and still no further bleeding was observed. I estimated that the blood loss was likely 400 ml. The liver bed was then inspected for hemostasis and this was achieved. The abdomen was irrigated with multiple liters of sterile saline and inspection was made that showed the clips in good position. The specimen was removed using Endo-Catch. A 19 F Francisco drain was placed into the RUQ into the gallbladder fossa secured with Nylon. The abdomen was desufflated. The umbilical fascia was closed with 0 Vicryl in a [id number]-[id number] fashion under direct visualization. Skin incisions were irrigated and closed with 4-0 Monocryl. 30 ml of 0.25% bupivacaine was infiltrated into the subcutaneous tissue of the incisions. The wounds were sealed with Dermabond. Patient emerged from anesthesia was extubated and transferred to recovery in stable condition. The sponge and instrument count at the end of the operation was correct. Post-operative Condition: stable Disposition: Acute Care
[2021-02-05] MEDS: HYDROMORPHONE 2 MG INJ IV ×2 (10:38→10:46)
[2021-02-05] MEDS: OXYCODONE IR 5 MG TABLET PO ×5 (10:51→22:54)
--- NOTE | 2021-02-05 11:15 | PC.NURSE ---
Day shift: Pt on unit from PACu at approx 1115. She is A&Ox4. Lap sites CDI. Francisco drain patent and depressed. Pt OOB and to BR SBA and voided approx 200ml urine. VS WNL. RA 99%. Denies any nausea. Reports ABD pain 4/10 prior to ambulating. Pain increased when OOB. Will medicate for pain per MAR. Oriented to room and call light. Tolerating ice chips and the SCD's. Will continue with plan of care. Per report EBL 400mls and Francisco put out 60mls in PACU.
[2021-02-05] MEDS: HYDROMORPHONE 0.5 MG INJ IV ×2 (11:46→16:08)
[2021-02-05] MEDS: ACETAMINOPHEN 325 MG TABLET 650 MG PO ×3 (12:35→23:52)
--- NOTE | 2021-02-05 12:58 | PC.NURSE ---
Day shift: Pt tolerated reg diet for lunch. Ate approx 50% mashed potatoes and gravy. Pain controlled per SEP. Pt's Mother (Stacey) in room at lunch time and she has been updated. IV fluids infusing per SEP. Denies any nausea. Pt encouraged to take a nap. VS remain WNL. RA 99%. Encouraged to deep breath as tolerated. Call light in reach. Pt agrees to not get OOB w/o help from staff. Francisco drain output 30ml's at approx 1130 and bright red.
--- NOTE | 2021-02-05 14:45 | PC.NURSE ---
Day shift: Dr Fenton made aware of Francisco drain output of approx 105mls on AC unit. also informed of the 60mls output in Francisco per [facility] [employer]. Lab also called to make sure Pt gets CBC soon. Lab said I'll be up soon.
[2021-02-05 15:02] LABS: Add Manual Diff / Slide Review NO; Basophils Absolute Auto 0 /uL (0-100); Basophils Percent Auto 0.1 % (0-2); Eosinophils Absolute Auto 0 /uL (0-450); Hematocrit 36.4 % (36-46); Hemoglobin 11.9 g/dL (12.0-16.0); Lymphocytes Absolute Auto 500 /uL (1100-4500); Lymphocytes Percent Auto 4.6 % (25-40); Mean Corpuscular HGB Conc 32.7 % (30-36); Mean Corpuscular Volume 88.8 fL (80-100); Monocytes Absolute Auto 200 /uL (0-900); Monocytes Percent Auto 2.2 % (3-14); Neutrophils Absolute Auto 10600 /uL (1500-7000); Neutrophils Percent Auto 93.1 % (50-75); Platelet Count 220 X10^3/uL (150-400); Red Cell Distribution Width 13.2 % (11.6-14.8); White Blood Cell Count 11.4 X10^3/uL (4.5-11.0)
[2021-02-05] MEDS: hydrOXYzine pamoate 25 MG CAPSULE PO (23:52)
[2021-02-06] VITALS: O2SAT 100
[2021-02-06 00:18] VITALS: BP 120/71; PULSE 75; RESP 16; TEMP 36.9; O2SAT 100
[2021-02-06] MEDS: OXYCODONE IR 5 MG TABLET PO ×3 (02:07→08:17)
[2021-02-06] MEDS: HYDROMORPHONE 0.5 MG INJ IV ×2 (02:36→05:53)
[2021-02-06 04:00] VITALS: O2SAT 97
[2021-02-06 04:56] VITALS: BP 111/59; PULSE 85; RESP 18; TEMP 36.8; O2SAT 95
[2021-02-06] MEDS: ACETAMINOPHEN 325 MG TABLET 650 MG PO (05:53)
[2021-02-06 06:50] LABS: Alanine Aminotransferase 80 IU/L (<35); Albumin 3.5 g/dL (3.5-5.0); Albumin Globulin Ratio 1.5 (1.0-2.8); Alkaline Phosphatase 59 U/L (38-126); Aspartate Aminotransferase 68 IU/L (14-36); BUN Creatinine Ratio 11.3 (6-22); Bilirubin Total 0.3 mg/dL (0.2-1.3); Blood Urea Nitrogen 7 mg/dL (7-17); Calcium 8.3 mg/dL (8.4-10.2); Carbon Dioxide 29 mmol/L (22-32); Chloride 104 mmol/L (98-107); Estimated Glomerular Filt Rate > 60.0 mL/min (>60); Globulin 2.4 g/dL (1.7-4.1); Glucose 105 mg/dL (70-100); HEMOLYSIS < 15 (0-50); Potassium 4.3 mmol/L (3.4-5.1); Sodium 139 mmol/L (137-145); Total Protein 5.9 g/dL (6.3-8.2)
[2021-02-06 06:59] LABS: Add Manual Diff / Slide Review NO; Basophils Absolute Auto 0 /uL (0-100); Basophils Percent Auto 0.4 % (0-2); Eosinophils Absolute Auto 0 /uL (0-450); Eosinophils Percent Auto 0.2 % (2-4); Hematocrit 32.3 % (36-46); Hemoglobin 10.8 g/dL (12.0-16.0); Lymphocytes Absolute Auto 3100 /uL (1100-4500); Lymphocytes Percent Auto 27.3 % (25-40); Mean Corpuscular HGB Conc 33.3 % (30-36); Mean Corpuscular Hemoglobin 29.4 PG (26-34); Mean Corpuscular Volume 88.4 fL (80-100); Monocytes Absolute Auto 900 /uL (0-900); Monocytes Percent Auto 8.5 % (3-14); Neutrophils Absolute Auto 7100 /uL (1500-7000); Neutrophils Percent Auto 63.6 % (50-75); Platelet Count 249 X10^3/uL (150-400); Red Blood Cell Count 3.66 X10^6/uL (4.0-5.2); Red Cell Distribution Width 13.4 % (11.6-14.8); White Blood Cell Count 11.2 X10^3/uL (4.5-11.0)
[2021-02-06 07:30] VITALS: BP 111/69; PULSE 79; RESP 18; TEMP 36.5; O2SAT 94
[2021-02-06] MEDS: LACTATED RINGERS 1,000 ML 100 ML IV (07:36)
--- NOTE | 2021-02-06 09:03 | PM.DS.1 ---
History of Present Illness History of Present Illness Chief complaint: [facility] Discharge Providers Provider Date of admission: 02/05/2021 Discharge Date: 02/06/21 Primary care physician: Burke Bautista DO Discharge provider: Dolly Young MD Summary Hospital Course Discharge Diagnosis: s/p lap igor for biliary colic Hospital Course: uncomplicated. observation overnight for potential post op bleeding. Hct 32% today Status at Discharge Cognitive/behavioral status at discharge: at baseline, oriented Functional status at discharge: independent ambulation Overall status at discharge: patient is back to baseline Time Spent with Patient Time spent: Less than 30 minutes Exam Vital Signs (past 8 hours): - 02/06/21 04:00 02/06/21 04:56 02/06/21 07:30 Temperature 98.2 F 97.7 F Pulse Rate 85 79 Respiratory Rate 18 18 Blood Pressure 111/59 L 111/69 Pulse Oximetry 97 95 94 Oxygen Delivery Method Room Air Oxygen Flow Rate 0 Objective Labs Result Diagrams: 02/06/21 06:27 02/06/21 06:27 Labs: Laboratory Results - last 24 hr 02/05/21 02/05/21 02/06/21 09:22 14:55 06:27 WBC 11.4 H 11.2 H RBC 4.10 3.66 L Hgb 11.9 L 10.8 L Hct 36.4 32.3 L MCV 88.8 88.4 MCH 29.0 29.4 MCHC 32.7 33.3 RDW 13.2 13.4 Plt Count 220 249 Neut % (Auto) 93.1 H 63.6 D Lymph % (Auto) 4.6 L 27.3 D Walton % (Auto) 2.2 L 8.5 Eos % (Auto) 0.0 L 0.2 L Baso % (Auto) 0.1 0.4 Neut # (Auto) 30946 H 7100 H Lymph # (Auto) 500 L 3100 Walton # (Auto) 200 900 Eos # (Auto) 0 0 Baso # (Auto) 0 0 Sodium Potassium Chloride Carbon Dioxide BUN Creatinine Estimated GFR BUN/Creatinine Ratio Glucose Calcium Total Bilirubin AST ALT Alkaline Phosphatase Total Protein Albumin Globulin Albumin/Globulin Ratio Blood Type O Positive Antibody Screen Negative 02/06/21 06:27 WBC RBC Hgb Hct MCV MCH MCHC RDW Plt Count Neut % (Auto) Lymph % (Auto) Walton % (Auto) Eos % (Auto) Baso % (Auto) Neut # (Auto) Lymph # (Auto) Walton # (Auto) Eos # (Auto) Baso # (Auto) Sodium 139 Potassium 4.3 Chloride 104 Carbon Dioxide 29 BUN 7 Creatinine 0.62 Estimated GFR > 60.0 BUN/Creatinine Ratio 11.3 Glucose 105 H Calcium 8.3 L Total Bilirubin 0.3 AST 68 H ALT 80 H Alkaline Phosphatase 59 Total Protein 5.9 L Albumin 3.5 Globulin 2.4 Albumin/Globulin Ratio 1.5 Blood Type Antibody Screen [facility] Medical History (Updated 01/29/21 @ 15:14 by Ludmila Sánchez, RN) Acne Acute bilateral thoracic back pain Ball-valve gallstone syndrome Cervical somatic dysfunction Chicken pox (~1995) Chlamydia infection (~2018) Chronic neck pain Chronic upper back pain Cranial somatic dysfunction Generalized anxiety disorder with panic attacks History of migraine headaches Hormone disorder HTN (hypertension) Irregular menstrual cycle Ovarian cyst Painful menstrual periods Pelvic somatic dysfunction Pyelonephritis Segmental and somatic dysfunction of abdomen and other regions Thoracic region somatic dysfunction TMJ dysfunction Surgical History (Updated 01/29/21 @ 15:14 by Ludmila Sánchez RN) Anesthesia History of facial surgery Hx of tonsillectomy (2011) [place] teeth extracted Family History Grandmother Cancer Grandfather Heart disease Sister Hydrocephalus Hypertension Father Hypertension Alcoholic Adopted Mother Hypertension Social History marital status: unmarried,living together number of children: 0 household members: significant other pets and animals: Yes (Dog) education level: college occupational status: employed current occupational exposures/hazards: No special killian needs: No leisure activities: exercise Smoking Status: Former smoker Smokeless tobacco user: other second hand exposure: No alcohol intake: former substance use type: does not use Discharge Assessment & Plan Assessment and Plan Assessment: home Plan of Treatment: restriction on diet. no heavy lifting (>[address] Fenton 1-2 weeks. Discharge Plan Discharge Plan Patient Disposition: Home Provider Discharge Comment: -Okay to shower tomorrow. -Do not submerge wounds in water until seen in follow-up. -No lifting >20 lbs x 4 weeks. -Walking only for exercise for 4 weeks. -No driving while taking narcotics. Discharge orders & Medications Discharge Orders: Discharge (Order); Ordered 02/06/21 Ordered By: Dolly Young Prescriptions: New oxycodone 5 mg tablet 5 mg PO Q8H PRN (Reason: pain) Qty: 30 RF: 0 acetaminophen [Tylenol] 325 mg capsule 650 mg PO QID PRN (Reason: pain) Qty: 60 RF: 0 Continued multivit no.61-qgwt-ejhxnq-dha 38-1-225 mg capsule 1 cap PO DAILY Qty: 90 RF: 4 hydroxyzine HCl 25 mg tablet 25 mg PO TID PRN (Reason: anxiety) Qty: 30 RF: 1 desog-e.estradiol/e.estradiol [Kariva (28)] 0.15-0.02 mgx21 /0.01 mg x 5 tablet 1 tab PO DAILY Qty: 84 RF: 5 acetaminophen 325 mg tablet 650 mg PO Q6H PRN (Reason: section) Qty: 30 RF: 1 Discontinued ibuprofen 600 mg tablet 600 mg PO Q6H PRN (Reason: section) Qty: 30 RF: 1 Follow up/Referrals: Nabil Fenton MD [Physician] - 2 Weeks Diet/Activity/Treatments Diet: Low-fat Skin/Wound/Dressing Care Report to your healthcare provider any signs of infection, such as:: chills, fever, increased pain, unusual drainage and unusual redness Discharge Data Primary Care Provider: Burke Bautista Attending Provider: Nabil Fenton
--- NOTE | 2021-02-06 09:12 | CM.DANOTE ---
Addendum entered by RORO Miller 02/06/21 10:40: ADD: Per Surgeon, pt is medically stable to d/c home today with no identified barriers to discharge. Pt is agreeable with d/c home via S.O. POV today. No SW needs at this time. BF Original Note: Patient is a 25 year old female who was admitted on 02/05/21 for Lap Katie. [facility] for insurance and her PCP is Dr. Burke Bautista. EMR was reviewed. Per Surgeon, pt tolerated procedure well and per RN pt has had supportive mother bedside and tolerating diet and voiding and sania drain had some significant output. SW met bedside with pt and explained role and she confirms that she lives at home in [place] with her Dtr and Dtr's father who is supportive and plans to provide some assist at d/c. Pt is active and independent at baseline and has local mother but also her sister plans to come up from [place] and stay for a few days to provide additional assist. Pt does not anticipate any needs at d/c and Sig Other can transport home when stable for d/c. Pt confirms she has ambulated in room without assist. Plan: SW to follow for likely d/c home via POV when medically stable and any further identified needs. RORO Miller Discharge Planning/Care Management CM Discharge Assessment Start: 02/06/21 09:09 Freq: Status: Active Protocol: Document 02/06/21 09:09 BF (Rec: 02/06/21 09:12 [id number]) Discharge Planning Assessment Assigned Almond Roaster RORO Ybarra DPOA/Assigned Designee Name informally sig other Sheldon Salvador Contact Information [phone] Advance Directives? No Advance Directives on File No History Provided By Patient,Medical Record Has Patient been admitted in last 30 No days? Prior Living Arrangements House Household Members significant other,children Comment has one dtr at home and sig other Type of transporation used prior to Drives own vehicle admit Independent with ADL's Yes Is patient alert and oriented? Yes Caregiver for Another Yes: dtr at home Barriers to Discharge No Discharge Plan Home Transportation Arrangement Sig other can transport at d/c to home Referrals Initiated None needed Whiteboard Updated in Patient Room with Yes name and ext. # of Almond Roaster Review Status In Process Please Provide Date Initial DC 02/06/21 Assessment Was Performed Next Review Type Continued Stay Review Pre-Anesthesia Assessment Start: 01/29/21 15:11 Freq: Status: Complete Protocol: Document 01/29/21 15:11 CAB (Rec: 01/29/21 15:19 CAB [id number]) Pre-Anesthesia Assessment Patient Information Reviewed Via Chart Review Comment COVID screen @ 02/04/21 Primary Care Provider Burke Bautista Seen Specialist in Last 12 Months Yes Specialist Seen General surgeon Primary Language Ecuadorean Editorial Director Required No Height 175.26 cm Weight 86.183 kg Body Mass Index (BMI) 28.0 Hx Anesthesia Reactions No Hx Family Anesthesia Reaction No Hx Malignant Hyperthermia No Hx Blood Transfusions No Anesthesia Review Requested No Corporate Recruiter No alcohol intake former Smoking Status Former smoker Tobacco type smokeless tobacco how long ago did patient quit smoking 2020 Substance Use Type does not use History of Falling (Recent or History of No ) Patient is completely paralyzed or No completely immobile Mental Status Oriented to own ability Is patient on oxygen? No Hx Sleep Apnea No Currently Taking a Beta Kailash No Anti-Coagulant Therapy No Has a Button Machine Operator No Cardiac Testing No Hx Pacemaker/ICD No Pacemaker Rep Required? No Cardiac Clearance Received Not Applicable Urinary Catheter Present No Hx Urinary Self Catheterization No Diabetes No Lactating Yes: s/p 1 year Marital Status Unmarried Lives With significant other Patient Discharge Plan Description Return Home Advance Directives? Yes
--- NOTE | 2021-02-06 11:17 | PC.NURSE ---
JOSE drain discontinued per MD order, patient tolerated well and states pain is much improved sense removal. I think it was causing the sharp pain near my ribs. Patient rested with ice to abdomen, and dressing to drain site remains intact with scant very light pink drainage noted. Steri strips to abdominal incisions CDI. Patient tolerating meals, up without dizziness or lightheadedness. Patient feels ready to go home with her family after lunch.
--- NOTE | 2021-02-06 13:58 | PC.NURSE ---
Discharge instructions and home care handouts reviewed with patient, she states understanding and feels ready to go home. Patient instructed to call MD office to confirm/schedule a follow up for 2 weeks. IV's dc'd intact. Patient tolerating diet without difficulty, voiding without difficulty, discussed importance of preventing constipation especially while taking narcotics. Escorted out via wheelchair with all belongings to home with her family. Instructed to call her surgeon with questions or concerns or to seek care for new or worsening symptoms.
--- NOTE | 2021-02-09 12:31 | PC.NURSE ---
Records sent to [facility] for continuance of care.
== END 2021-02-06 12:55 | disposition home or self-care (01) ==
LOC: OR 10:56 → AC 02-06 08:39
PROVIDERS: Admitting Provider Surgery; PCP Family Medicine; Referring Provider Family Medicine; Visit Provider Surgery
PROC: 0FT44ZZ Resection of Gallbladder, Percutaneous Endoscopic Approach (ICD-10-PCS; CPT 47562; principal; 2021-02-05 07:45)
DX: K80.10 Calculus of gallbladder with chronic cholecystitis without obstruction (principal); E36.01 Intraoperative hemorrhage and hematoma of an endocrine system organ or structure complicating an endocrine system procedure; E66.9 Obesity, unspecified; Z68.34 Body mass index [BMI] 34.0-34.9, adult; F41.9 Anxiety disorder, unspecified
CPT/HCPCS: 47562; 36415; 80053; 81025; 82962; 85025; 86850; 86900; 86901; G0378; J0330; J0690; J1100; J1170; J2250; J2405; J2704; J3010

== ENCOUNTER 2021-02-08 10:29 | Emergency (ER) | payer OTHER, MEDICAID, SELFPAY ==
[2021-02-05 12:19] VITALS: BMI 28.0
[2021-02-08 10:39] VITALS: BP 114/79; PULSE 112; RESP 14; TEMP 37.7; O2SAT 99; BMI 28.8
[2021-02-08] MEDS: SODIUM CHLORIDE 0.9% 1,000 ML 1000 ML IV (10:55)
[2021-02-08] MEDS: ONDANSETRON 4 MG/2 ML INJ IV (10:55)
--- NOTE | 2021-02-08 10:59 | ED_ITS ---
HPI - General Adult General Chief complaint: Fever Stated complaint: gall bladder out Thursday, vomiting and fever Time Seen by Provider: 02/08/21 10:38 Source: patient Mode of arrival: Ambulatory Limitations: no limitations History of Present Illness HPI narrative: Patient is a 25-year-old female who had a scheduled outpatient laparoscopic cholecystectomy done on Thursday of this week. She states she was kept overnight for observation because she lost ?400 cc ?of blood in had a drain in place. It was removed the next morning. Was discharged home. Since that time she has had increasing abdominal discomfort and last evening she started having nausea and vomiting and also fevers. No chest pain. No urinary symptoms. Has not had a bowel movement since prior to the surgery. She is taking Colace. Related Data Previous Rx's Medication Instructions Recorded multivit no.42-iron 38 1 cap PO DAILY #90 cap 07/26/19 mg-methyltetrahydfolate 1 mg-dha 225 mg capsule acetaminophen 325 mg tablet 650 mg PO Q6H PRN #30 tab 12/01/19 hydroxyzine HCl 25 mg tablet 25 mg PO TID PRN #30 tab 09/13/20 desogestrel-e.estradiol 0.15 1 tab PO DAILY #84 tab 12/05/20 mg-0.02 mg(21)/e.estrad 0.01 mg(5) tablet (Kariva (28)) acetaminophen 325 mg capsule 650 mg PO QID PRN #60 cap 02/05/21 (Tylenol) oxycodone 5 mg tablet 5 mg PO Q8H PRN #30 tab 02/05/21 ondansetron 4 mg disintegrating 4 mg PO Q6H PRN #14 tab 02/08/21 tablet Allergies Allergy/AdvReac Type Severity Reaction Status Date / Time adhesive tape Allergy Mild LOCAL Verified 02/05/21 07:08 RASH/HIVES sertraline [From Zoloft] AdvReac Mild [place] more Verified 02/05/21 07:08 anxious Review of Systems Constitutional Constitutional: Reports fever(s) Cardiovascular Cardiovascular: Denies chest pain and Denies dyspnea Respiratory Respiratory: Denies cough and Denies dyspnea Gastrointestinal Gastrointestinal: Reports as per HPI, Reports abdominal pain, Reports nausea and Reports vomiting Genitourinary Genitourinary: Denies dysuria Musculoskeletal Musculoskeletal: Reports system reviewed and no additional complaints, except as documented Integumentary/Breasts Skin/Breast: Denies rash Neurologic Neurologic: Reports system reviewed and no additional complaints, except as documented Hematologic/Lymphatic On Anticoagulants: No Allergic/Immunologic Allergic/Immunologic: Reports system reviewed and no additional complaints, except as documented Patient History Medical History Acne Acute bilateral thoracic back pain Ball-valve gallstone syndrome Cervical somatic dysfunction Chicken pox (~1995) Chlamydia infection (~2018) Chronic neck pain Chronic upper back pain Cranial somatic dysfunction Generalized anxiety disorder with panic attacks History of migraine headaches Hormone disorder HTN (hypertension) Irregular menstrual cycle Ovarian cyst Painful menstrual periods Pelvic somatic dysfunction Pyelonephritis Segmental and somatic dysfunction of abdomen and other regions Thoracic region somatic dysfunction TMJ dysfunction Surgical History (Updated 01/29/21 @ 15:14 by Ludmila Sánchez RN) Anesthesia History of facial surgery Hx of tonsillectomy (2011) [place] teeth extracted Family History Grandmother Cancer Grandfather Heart disease Sister Hydrocephalus Hypertension Father Hypertension Alcoholic Adopted Mother Hypertension Social History marital status: unmarried,living together number of children: 0 household members: significant other and children pets and animals: Yes (Dog) education level: college occupational status: employed current occupational exposures/hazards: No special killian needs: No leisure activities: exercise Smoking Status: Former smoker Smokeless tobacco user: other second hand exposure: No alcohol intake: former substance use type: does not use Smoking Status: Former smoker alcohol intake frequency: 0-2 drinks per day Substance Use Type: does not use Exam Initial Vital Signs Initial Vital Signs: Vital Signs Temperature 99.9 F H 02/08/21 10:39 Pulse Rate 112 H 02/08/21 10:39 Respiratory Rate 14 02/08/21 10:39 Blood Pressure 114/79 02/08/21 10:39 Pulse Oximetry 99 02/08/21 10:39 Const General: cooperative and comfortable HENMT Head: normal to inspection and normocephalic Chest Chest: normal inspection of the chest Resp Effort & Inspection: normal respiratory effort and not tachypneic Auscultation: clear to auscultation bilaterally Cardio Rate: tachycardic Rhythm: regular rhythm GI Other: Surgical wounds come anterior abdomen consistent with stated history, does have generalized tenderness. Skin Other: Surgical wounds appear well Neuro General: patient alert, patient awake and patient oriented x3 Extrem General: capillary refill normal Psych Appearance: grossly normal and well kempt Course Orders Ordered: ED Orders 02/08/21 10:50 Complete Blood Count AUTO DIFF Stat Comprehensive Metabolic Panel Stat Lactate (Lactic Acid) Stat Lipase Stat Procalcitonin Stat 02/08/21 10:58 CT abdomen pelvis w con Stat 02/08/21 11:55 Blood Culture Stat Discontinued Medications Sodium Chloride (Normal Saline 0.9%) 1,000 mls @ 1,000 mls/hr IV BOLUS ONE Stop: 02/08/21 11:43 Last Infusion: 02/08/21 12:09 Dose: 0 mls/hr Documented by: Admin: 02/08/21 10:55 Dose: 1,000 mls/hr Documented by: BESSY Ondansetron HCl (Ondansetron 4 Mg/2 Ml Inj) 4 mg IV NOW ONE Stop: 02/08/21 10:45 Last Admin: 02/08/21 10:55 Dose: 4 mg Documented by: BESSY Vital Signs Vital signs: Vital Signs - 8 hr 02/08/21 10:39 02/08/21 11:41 Temperature 99.9 F H Pulse Rate 112 H 115 H Respiratory Rate 14 97 H Blood Pressure 114/79 114/75 Pulse Oximetry 99 Medical Decision Making Lab Data Lab results reviewed: Yes I reviewed the patient's lab results. Result diagrams: 02/08/21 10:50 02/08/21 10:50 Labs: Lab Results 02/08/21 02/08/21 02/08/21 Range/Units 10:50 10:50 10:50 WBC 12.1 H (4.5-11.0) X10^3/uL RBC 3.96 L (4.0-5.2) X10^6/uL Hgb 11.5 L (12.0-16.0) g/dL Hct 34.6 L (36-46) % MCV 87.5 (80-100) fL MCH 29.0 (26-34) PG MCHC 33.1 (30-36) % RDW 13.1 (11.6-14.8) % Plt Count 220 (150-400) X10^3/uL Neut % (Auto) 87.2 H (50-75) % Lymph % (Auto) 5.9 L (25-40) % [place] % (Auto) 6.2 (3-14) % Eos % (Auto) 0.3 L (2-4) % Baso % (Auto) 0.4 (0-2) % Neut # (Auto) 95828 H (6873-8987) /uL Lymph # (Auto) 700 L (6430-6261) /uL [place] # (Auto) 800 (0-900) /uL Eos # (Auto) 0 (0-450) /uL Baso # (Auto) 0 (0-100) /uL Sodium 136 L (137-145) mmol/L Potassium 3.8 (3.4-5.1) mmol/L Chloride 101 (98-107) mmol/L Carbon Dioxide 30 (22-32) mmol/L BUN 7 (7-17) mg/dL Creatinine 0.61 (0.52-1.04) mg/dL Estimated GFR > 60.0 (>60) mL/min BUN/Creatinine Ratio 11.5 (6-22) Glucose 105 H (70-100) mg/dL Lactate 0.9 (0.7-2.1) mmol/L Calcium 9.2 (8.4-10.2) mg/dL Total Bilirubin 1.2 (0.2-1.3) mg/dL AST 1017 H (14-36) IU/L ALT 964 H (<35) IU/L Alkaline Phosphatase 210 H D (38-126) U/L Total Protein 7.2 (6.3-8.2) g/dL Albumin 4.3 (3.5-5.0) g/dL Globulin 2.9 (1.7-4.1) g/dL Albumin/Globulin Ratio 1.5 (1.0-2.8) Lipase 67 (23-300) U/L Procalcitonin 0.14 (<0.5) ng/mL Imaging Data CT scan - abdomen/pelvis: Radiologist's Impression: [address] [id number] Scan ReportSigned Patient: Maty Roa NMR#: [id number]: 1995Acct:[id number]/Sex: 25 / FDate of Service: 02/08/21Loc: EDAccession Number: [id number] Procedure: CT abdomen pelvis w con Ordering Provider: Henry Nieto D.O. PROCEDURE: CT ABDOMEN PELVIS W CON INDICATIONS: Lap igor Tues, worse pain and fever TECHNIQUE: After the administration of intravenous contrast, axial sections acquired from the lung bases to the pubic symphysis. Coronal and sagittal reformats were performed. For radiation dose reduction, the following was used: automated exposure control, adjustment of mA and/or kV according to patient size. COMPARISON: [facility], US, US ABDOMEN COMPLETE, 12/21/2020, 11:11. FINDINGS: Image quality: Excellent. Lung bases: Unremarkable. Heart: No significant findings. ABDOMEN: Liver: Unremarkable. Gallbladder: Gallbladder is surgically absent. Small amount of fluid is noted within gallbladder fossa Biliary ducts: Unremarkable. Pancreas: Unremarkable. Spleen: Unremarkable. Adrenal Glands: Unremarkable. Kidneys and Ureters: Unremarkable. Stomach and Bowel: There is no evidence of bowel obstruction. Appendix is visualized and is within normal limits. No gross abnormal bowel wall thickening. [id number] fecal stasis in the colon is seen. No abscess collection. Peritoneum: There is moderate amount of pelvic free fluid. No free air. Ventral Wall: Small umbilical hernia containing fat only is seen. Subcutaneous emphysema in right anterior abdominal wall is noted consistent with postsurgical changes. Abdominal Nodes: No retroperitoneal or mesenteric adenopathy by size criteria. Vessels: Aorta and inferior vena cava are normal in size. PELVIS: Pelvic Organs: Unremarkable. Bladder: Unremarkable. Pelvic Nodes: No enlarged lymph nodes. Miscellaneous: No hernias are seen. Bones: Unremarkable. IMPRESSION: 1. Postsurgical changes in right anterior abdominal wall with small amount of subcutaneous emphysema. 2. Patient is status post cholecystectomy with surgical clips seen in gallbladder fossa. Small amount of fluid is also noted in gallbladder fossa which may represent postsurgical changes. Small bile leak cannot be excluded. 3. Moderate amount of free fluid in lower abdomen and pelvis. No gross peritoneal free air. No evidence of bowel obstruction or gross abnormal bowel wall thickening. Normal appendix. Mild to moderate constipation. Dictated by: Jonel Pacheco M.D. on 02/08/2021 at 11:27 Approved by: Jonel Pacheco M.D. on 02/08/2021 at 11:31 MDM Narrative Medical decision making narrative: Considered a postsurgical infection given her presentation today. She does have a leukocytosis. She does have an elevation in her LFTs however she did just recently have gallbladder surgery. The CT scan shows appropriate postsurgical changes. The skin wounds appear appropriate as well. I have low suspicion for pneumonia. She is a clear lung exam. I did discuss the case with Dr. Young who is on-call for General surgery who talk with the patient last evening when she started to have symptoms. The plan will be is to hold on any antibiotics for now. Will send home with nausea medication and also an incentive spirometer. I did give the patient strict return precautions. She expressed understanding and agreement this plan. Discharge Plan Departure Patient Disposition: Home Clinical Impression: Postoperative complication Instructions: DI for Fever (Symptom) -- Adult Activity Restrictions/Additional Instructions: Recommend that you continue all of the postoperative instructions given the by Dr. Fenton. A prescription for nausea medication was transmitted to [facility]. Keep all of your scheduled medical appointments. Return to the emergency department for any new or worsening symptoms Prescriptions: New ondansetron 4 mg tablet,disintegrating 4 mg PO Q6H PRN (Reason: nausea and vomiting) Qty: 14 RF: 0 No Action multivit no.12-heyj-hxqghv-dha 38-1-225 mg capsule 1 cap PO DAILY Qty: 90 RF: 4 hydroxyzine HCl 25 mg tablet 25 mg PO TID PRN (Reason: anxiety) Qty: 30 RF: 1 desog-e.estradiol/e.estradiol [Kariva (28)] 0.15-0.02 mgx21 /0.01 mg x 5 tablet 1 tab PO DAILY Qty: 84 RF: 5 acetaminophen 325 mg tablet 650 mg PO Q6H PRN (Reason: section) Qty: 30 RF: 1 oxycodone 5 mg tablet 5 mg PO Q8H PRN (Reason: pain) Qty: 30 RF: 0 acetaminophen [Tylenol] 325 mg capsule 650 mg PO QID PRN (Reason: pain) Qty: 60 RF: 0 Referrals: Burke Bautista DO [Primary Care Provider] -
[2021-02-08 11:09] LABS: Add Manual Diff / Slide Review NO; Basophils Absolute Auto 0 /uL (0-100); Basophils Percent Auto 0.4 % (0-2); Eosinophils Absolute Auto 0 /uL (0-450); Eosinophils Percent Auto 0.3 % (2-4); Hematocrit 34.6 % (36-46); Hemoglobin 11.5 g/dL (12.0-16.0); Lymphocytes Absolute Auto 700 /uL (1100-4500); Lymphocytes Percent Auto 5.9 % (25-40); Mean Corpuscular HGB Conc 33.1 % (30-36); Mean Corpuscular Volume 87.5 fL (80-100); Monocytes Absolute Auto 800 /uL (0-900); Monocytes Percent Auto 6.2 % (3-14); Neutrophils Absolute Auto 10600 /uL (1500-7000); Neutrophils Percent Auto 87.2 % (50-75); Platelet Count 220 X10^3/uL (150-400); Red Blood Cell Count 3.96 X10^6/uL (4.0-5.2); Red Cell Distribution Width 13.1 % (11.6-14.8); White Blood Cell Count 12.1 X10^3/uL (4.5-11.0)
[2021-02-08 11:28] LABS: Albumin 4.3 g/dL (3.5-5.0); Albumin Globulin Ratio 1.5 (1.0-2.8); Alkaline Phosphatase 210 U/L (38-126); BUN Creatinine Ratio 11.5 (6-22); Bilirubin Total 1.2 mg/dL (0.2-1.3); Blood Urea Nitrogen 7 mg/dL (7-17); Calcium 9.2 mg/dL (8.4-10.2); Carbon Dioxide 30 mmol/L (22-32); Chloride 101 mmol/L (98-107); Estimated Glomerular Filt Rate > 60.0 mL/min (>60); Globulin 2.9 g/dL (1.7-4.1); Glucose 105 mg/dL (70-100); HEMOLYSIS < 15 (0-50); Lactate (Lactic Acid) 0.9 mmol/L (0.7-2.1); Lipase 67 U/L (23-300); Potassium 3.8 mmol/L (3.4-5.1); Sodium 136 mmol/L (137-145); Total Protein 7.2 g/dL (6.3-8.2)
[2021-02-08 11:34] LABS: Aspartate Aminotransferase 1017 IU/L (14-36)
[2021-02-08 11:35] LABS: Alanine Aminotransferase 964 IU/L (<35)
[2021-02-08 11:41] VITALS: BP 114/75; PULSE 115; RESP 97
[2021-02-08 11:44] LABS: Procalcitonin 0.14 ng/mL (<0.5)
[2021-02-08] MEDS: ACETAMINOPHEN 325 MG TABLET 975 MG PO (12:21)
[2021-02-08] MEDS: ONDANSETRON 4 MG ODT SL (12:30)
[2021-02-08 12:31] VITALS: BP 124/71; PULSE 107; RESP 18; O2SAT 97
== END 2021-02-08 12:34 | disposition home or self-care (01) ==
PROVIDERS: Emergency Provider Emergency Medicine; PCP Family Medicine
DX: T81.9XXA Unspecified complication of procedure, initial encounter (principal); D72.829 Elevated white blood cell count, unspecified; R11.2 Nausea with vomiting, unspecified; R50.9 Fever, unspecified
CPT/HCPCS: 36415; 74177; 80053; 83605; 83690; 84145; 85025; 87040; 96361; 96374; 99284; J2405; Q9967

== ENCOUNTER → 2021-02-14 09:10 | Outpatient (CLI) | payer OTHER, MEDICAID, SELFPAY ==
[2021-02-05 12:19] VITALS: BMI 28.0
[2021-02-14 09:25] LABS: Add Manual Diff / Slide Review NO; Basophils Absolute Auto 0 /uL (0-100); Basophils Percent Auto 0.5 % (0-2); Eosinophils Absolute Auto 100 /uL (0-450); Eosinophils Percent Auto 1.4 % (2-4); Hematocrit 34.3 % (36-46); Hemoglobin 11.5 g/dL (12.0-16.0); Lymphocytes Absolute Auto 2000 /uL (1100-4500); Lymphocytes Percent Auto 20.9 % (25-40); Mean Corpuscular HGB Conc 33.5 % (30-36); Mean Corpuscular Hemoglobin 29.2 PG (26-34); Mean Corpuscular Volume 87.2 fL (80-100); Monocytes Absolute Auto 600 /uL (0-900); Monocytes Percent Auto 6.7 % (3-14); Neutrophils Absolute Auto 6600 /uL (1500-7000); Neutrophils Percent Auto 70.5 % (50-75); Platelet Count 424 X10^3/uL (150-400); Red Blood Cell Count 3.93 X10^6/uL (4.0-5.2); Red Cell Distribution Width 13.7 % (11.6-14.8); White Blood Cell Count 9.4 X10^3/uL (4.5-11.0)
[2021-02-14 09:37] LABS: Alanine Aminotransferase 143 IU/L (<35); Albumin 4.1 g/dL (3.5-5.0); Albumin Globulin Ratio 1.5 (1.0-2.8); Alkaline Phosphatase 110 U/L (38-126); Aspartate Aminotransferase 35 IU/L (14-36); BUN Creatinine Ratio 12.3 (6-22); Bilirubin Total 0.3 mg/dL (0.2-1.3); Blood Urea Nitrogen 7 mg/dL (7-17); Calcium 9.1 mg/dL (8.4-10.2); Carbon Dioxide 29 mmol/L (22-32); Chloride 105 mmol/L (98-107); Estimated Glomerular Filt Rate > 60.0 mL/min (>60); Globulin 2.8 g/dL (1.7-4.1); Glucose 111 mg/dL (70-100); HEMOLYSIS < 15 (0-50); Potassium 3.9 mmol/L (3.4-5.1); Sodium 140 mmol/L (137-145); Total Protein 6.9 g/dL (6.3-8.2)
[2021-02-14 09:58] LABS: Procalcitonin 0.05 ng/mL (<0.5)
== END ==
PROVIDERS: PCP Family Medicine; Referring Provider Specialist; Visit Provider Specialist
DX: K80.10 Calculus of gallbladder with chronic cholecystitis without obstruction (principal)
CPT/HCPCS: 36415; 80053; 84145; 85025

== ENCOUNTER → 2022-01-16 10:31 | Outpatient (CLI) | payer OTHER, MEDICAID, SELFPAY ==
[2021-02-05 12:19] VITALS: BMI 28.0
[2022-01-16 11:54] LABS: Add Manual Diff / Slide Review NO; Basophils Absolute Auto 0 /uL (0-100); Basophils Percent Auto 0.4 % (0-2); Eosinophils Absolute Auto 100 /uL (0-450); Hematocrit 39.2 % (36-46); Hemoglobin 13.2 g/dL (12.0-16.0); Lymphocytes Absolute Auto 1600 /uL (1100-4500); Mean Corpuscular HGB Conc 33.8 % (30-36); Mean Corpuscular Hemoglobin 29.5 PG (26-34); Mean Corpuscular Volume 87.4 fL (80-100); Monocytes Absolute Auto 300 /uL (0-900); Monocytes Percent Auto 5.7 % (3-14); Neutrophils Absolute Auto 3900 /uL (1500-7000); Neutrophils Percent Auto 65.9 % (50-75); Platelet Count 245 X10^3/uL (150-400); Red Blood Cell Count 4.48 X10^6/uL (4.0-5.2); Red Cell Distribution Width 13.9 % (11.6-14.8); White Blood Cell Count 5.9 X10^3/uL (4.5-11.0)
[2022-01-16 12:30] LABS: Erythrocyte Sedimentation Rate 6 MM/HR (0-20)
[2022-01-16 12:36] LABS: Alanine Aminotransferase 13 IU/L (<35); Albumin 4.3 g/dL (3.5-5.0); Albumin Globulin Ratio 1.7 (1.0-2.8); Alkaline Phosphatase 63 U/L (38-126); Aspartate Aminotransferase 19 IU/L (14-36); BUN Creatinine Ratio 14.3 (6-22); Bilirubin Total 0.3 mg/dL (0.2-1.3); Blood Urea Nitrogen 11 mg/dL (7-17); C-Reactive Protein Quant 0.7 mg/dL (<1.0); Carbon Dioxide 27 mmol/L (22-32); Chloride 106 mmol/L (98-107); Estimated Glomerular Filt Rate > 60 mL/min (>60); Globulin 2.5 g/dL (1.7-4.1); Glucose 95 mg/dL (70-100); HEMOLYSIS < 15 (0-50); Potassium 4.1 mmol/L (3.4-5.1); Sodium 139 mmol/L (137-145); Total Protein 6.8 g/dL (6.3-8.2)
[2022-01-16 13:04] LABS: TSH w/ Reflex to FT4 1.36 uIU/mL (0.47-4.68)
[2022-01-16 21:28] LABS: Hep C Virus Ab w/Reflex Quant NEGATIVE s/c (NEGATIVE)
[2022-01-19 14:37] LABS: Immunoglobulin E 195 IU/mL (6-495)
== END ==
PROVIDERS: PCP Family Medicine; Referring Provider Pediatrics; Visit Provider Pediatrics
DX: L50.8 Other urticaria (principal)
CPT/HCPCS: 36415; 80053; 82785; 84443; 85025; 85651; 86140; 86803

== ENCOUNTER → 2023-07-22 11:37 | Outpatient (CLI) | payer OTHER, MEDICAID, SELFPAY ==
[2021-02-05 12:19] VITALS: BMI 28.0
[2023-07-22 12:22] LABS: Add Manual Diff / Slide Review NO; Basophils Absolute Auto 0 /uL (0-100); Basophils Percent Auto 0.7 % (0-2); Eosinophils Absolute Auto 100 /uL (0-450); Eosinophils Percent Auto 1.4 % (2-4); Hematocrit 40.7 % (36-46); Hemoglobin 13.7 g/dL (12.0-16.0); Lymphocytes Absolute Auto 2100 /uL (1100-4500); Lymphocytes Percent Auto 28.8 % (25-40); Mean Corpuscular HGB Conc 33.5 % (30-36); Mean Corpuscular Hemoglobin 29.3 PG (26-34); Mean Corpuscular Volume 87.3 fL (80-100); Monocytes Absolute Auto 500 /uL (0-900); Monocytes Percent Auto 7.5 % (3-14); Neutrophils Absolute Auto 4400 /uL (1500-7000); Neutrophils Percent Auto 61.6 % (50-75); Platelet Count 270 X10^3/uL (150-400); Red Blood Cell Count 4.67 X10^6/uL (4.0-5.2); Red Cell Distribution Width 13.3 % (11.6-14.8); White Blood Cell Count 7.2 X10^3/uL (4.5-11.0)
[2023-07-22 13:46] LABS: HEMOLYSIS < 15 (0-50); Iron 123 ug/dL (37-170)
[2023-07-22 13:50] LABS: Alanine Aminotransferase 17 IU/L (<35); Albumin 4.3 g/dL (3.5-5.0); Albumin Globulin Ratio 1.5 (1.0-2.8); Alkaline Phosphatase 62 U/L (38-126); Aspartate Aminotransferase 21 IU/L (14-36); BUN Creatinine Ratio 12.9 (6-22); Bilirubin Total 0.9 mg/dL (0.2-1.3); Blood Urea Nitrogen 8 mg/dL (7-17); Calcium 9.6 mg/dL (8.4-10.2); Carbon Dioxide 29 mmol/L (22-32); Chloride 102 mmol/L (98-107); Estimated Glomerular Filt Rate > 60 mL/min (>60); Globulin 2.9 g/dL (1.7-4.1); Glucose 81 mg/dL (70-100); HEMOLYSIS < 15 (0-50); Potassium 4.1 mmol/L (3.4-5.1); Sodium 136 mmol/L (137-145); Total Protein 7.2 g/dL (6.3-8.2)
[2023-07-22 14:02] LABS: Percent Iron Saturation 40 % (15-50); Total Iron Binding Capacity 311 ug/dL (265-497); Transferrin 260 mg/dL (206-381)
== END ==
PROVIDERS: PCP Family Medicine; Referring Provider Family Medicine; Visit Provider Family Medicine
DX: R53.83 Other fatigue (principal); R25.2 Cramp and spasm
CPT/HCPCS: 36415; 80053; 81025; 83540; 83550; 83735; 85025

== ENCOUNTER → 2023-10-14 12:11 | Outpatient (CLI) | payer OTHER, MEDICAID, SELFPAY ==
[2021-02-05 12:19] VITALS: BMI 28.0
== END ==
PROVIDERS: PCP Family Medicine; Visit Provider Nurse Practitioner Family
DX: R30.0 Dysuria (principal)
CPT/HCPCS: 81002; 87077; 87086; 87186